=== PATIENT | male | born 1985 | race African-American/Black ===

== ENCOUNTER 2018-07-08 18:33 | Inpatient (IN) | payer MEDICAID, OTHER ==
--- NOTE | 2018-07-08 19:30 | ED ---
General Adult HPI - General Stated complaint: Suicidal, homicidal Time Seen by Provider: 07/08/18 19:12 Source: patient, family, RN notes reviewed, old records reviewed - History of Present Illness Initial comments: 33-year-old male presents for psychiatric evaluation. Patient is complaining of increasing suicidal and homicidal ideation. He has had several attempts at self-harm including some superficial cuts on his chest and thighs. He's had development of suicidal plans including any suicide with firearm or overdosing on pills. He is accompanied by [facility] employee who had evaluated him as an outpatient and requested that he be evaluated emergency department. Patient has no physical complaints. He is previous diagnosis of depression and schizophrenia, not currently on any medication. - Related Data Home Medications Medication Instructions Recorded Confirmed ARIPiprazole [Abilify] 10 mg PO DAILY 07/08/18 07/08/18 hydrOXYzine PAMOATE [Vistaril] 50 mg PO TID 07/08/18 07/08/18 traZODone HCL 300 mg PO HS 07/08/18 07/08/18 Allergies Allergy/AdvReac Type Severity Reaction Status Date / Time No Known Allergies Allergy Verified 07/08/18 19:35 Review of Systems ROS Statement: Those systems with pertinent positive or pertinent negative responses have been documented in the HPI. ROS Other: All systems not noted in ROS Statement are negative. General Exam General appearance: alert, in no apparent distress Head exam: Present: atraumatic, normocephalic Eye exam: Present: normal appearance, PERRL ENT exam: Present: normal exam Neck exam: Present: normal inspection. Absent: tenderness, meningismus Respiratory exam: Present: normal lung sounds bilaterally. Absent: respiratory distress Cardiovascular Exam: Present: regular rate, normal rhythm GI/Abdominal exam: Present: soft. Absent: distended, tenderness Extremities exam: Present: normal inspection Neurological exam: Present: alert, oriented X3 Psychiatric exam: Present: depressed, flat affect, homicidal ideation, suicidal ideation Skin exam: Present: warm, dry, abrasion (Superficial abrasion right medial thigh, left upper chest wall no repairable laceration) Course Vital Signs 07/08/18 19:00 Temperature 98.2 F Pulse Rate 88 Respiratory 20 Rate Blood Pressure 132/88 O2 Sat by Pulse 99 Oximetry Medical Decision Making - Medical Decision Making 33-year-old male presenting for psychiatric evaluation. Patient medically cleared by myself. He is evaluated by EPS, will be admitted for further psychiatric evaluation and treatment. Disposition Clinical Impression: Depression, Suicidal ideation Disposition: ADMITTED IP TO THIS HOSP Condition: Stable Is patient prescribed a controlled substance at d/c from ED?: No Referrals: None,Stated [Primary Care Provider] - 1-2 days Decision to Admit Reason: Admit from EC Decision Date: 07/08/18 Decision Time: 20:31
[2018-07-08] MEDS ORDERED: MAGNESIUM HYDROXIDE 2,400 MG/10 ML CUP PO PRN (20:59)
[2018-07-08] MEDS ORDERED: ZIPRASIDONE 20 MG VIAL IM PRN (20:59)
[2018-07-08] MEDS ORDERED: MAG HYDROX/AL HYDROX/SIMETH 30 ML CUP PO PRN (20:59)
[2018-07-08] MEDS ORDERED: ACETAMINOPHEN TAB 325 MG TAB PO PRN (20:59)
[2018-07-08] MEDS ORDERED: hydrOXYzine PAMOATE 25 MG CAP PO PRN (21:03)
--- NOTE | 2018-07-09 00:49 | P.PN ---
Progress Note - Text Progress Note Date: 07/09/18 attempted to see patient at 1230 , patient was sleeping, will retry in AM
[2018-07-09 12:35] LABS: ALT 18 U/L (21-72); AST 27 U/L (17-59); Albumin 4.8 g/dL (3.5-5.0); Alkaline Phosphatase 61 U/L (38-126); Anion Gap 9 mmol/L; Blood Urea Nitrogen 11 mg/dL (9-20); Calcium 10.1 mg/dL (8.4-10.2); Carbon Dioxide 25 mmol/L (22-30); Chloride 105 mmol/L (98-107); Cholesterol 160 mg/dL (<200); Glucose 103 mg/dL (74-99); HDL Cholesterol 75 mg/dL (40-60); LDL Cholesterol,Calculated 75 mg/dL (0-99); Potassium 4.5 mmol/L (3.5-5.1); Sodium 139 mmol/L (137-145); Total Protein 8.2 g/dL (6.3-8.2); Triglycerides 51 mg/dL (<150)
[2018-07-09 13:23] LABS: Basophils % (A) 1 %; Eosinophils # (A) 0.1 k/uL (0-0.7); Eosinophils % (A) 3 %; HCT 46.9 % (39.0-53.0); HGB 15.5 gm/dL (13.0-17.5); Lymphocytes # (A) 1.1 k/uL (1.0-4.8); Lymphocytes % (A) 34 %; MCH 31.5 pg (25.0-35.0); MCV 95.5 fL (80.0-100.0); Mean Platelet Volume 7.8; Monocytes # (A) 0.2 k/uL (0-1.0); Monocytes % (A) 5 %; Neutrophils # (A) 1.7 k/uL (1.3-7.7); Neutrophils % (A) 54 %; Platelet Count 179 k/uL (150-450); RBC 4.91 m/uL (4.30-5.90); RDW 14.2 % (11.5-15.5); WBC 3.2 k/uL (3.8-10.6)
--- NOTE | 2018-07-09 14:22 | P.HP ---
Psychiatric H&P - . H&P Date: 07/09/18 History & Physical: Allergies Allergy/AdvReac Type Severity Reaction Status Date / Time No Known Allergies Allergy Verified 07/08/18 19:35 Vital Signs Temp 98 F 07/09/18 06:08 Pulse 68 07/09/18 06:08 Resp 18 07/09/18 06:08 BP 113/67 07/09/18 06:08 Pulse Ox 96 07/09/18 06:08 Intake & Output 07/08/18 07/09/18 07/09/18 18:59 06:59 18:59 Weight 97.551 kg Assessment and Plan (1) Schizoaffective disorder Narrative/Plan: 33-year-old male presents for psychiatric evaluation. Patient is complaining of increasing suicidal and homicidal ideation. He has had several attempts at self-harm including some superficial cuts on his chest and thighs. He's had development of suicidal plans including any suicide with firearm or overdosing on pills. He is accompanied by community mental health employee who had evaluated him as an outpatient and requested that he be evaluated emergency department. Patient has no physical complaints. He is previous diagnosis of depression and schizophrenia, not currently on any medication. - Related Data Home Medications Medication Instructions Recorded Confirmed ARIPiprazole [Abilify] 10 mg PO DAILY 07/08/18 07/08/18 hydrOXYzine PAMOATE [Vistaril] 50 mg PO TID 07/08/18 07/08/18 traZODone HCL 300 mg PO HS 07/08/18 07/08/18 Allergies Allergy/AdvReac Type Severity Reaction Status Date / Time No Known Allergies Allergy Verified 07/08/18 19:35 Musculoskeletal Examination - Abnormal/Involuntary Movements: [none Strength: [greater than antigravity (greater than/equal to 3/5) in all extremities] Muscle Tone: [no impairment Gait: [grossly normal Station: [grossly normal Mental Status Examination - General Appearance: [ casual, bizarre, appears stated age, appears older than stated age, appears younger than stated age, other] Speech/Language: [spontaneous, hesitant, halting, monotone Attitude/Behavior: [cooperative, guarded, irritable, withdrawn, indifferent, other] Mood: [ depressed, anxious, elated, irritable, angry, fearful, hopelessness, other] Affect: [ flat, incongruent, labile, blunted constricted] Orientation: [time, person, place situation] Thought Content: [delusions Risk Factors: [Admits to both suicidal (ideations, plan), and/or Homicidal (ideations, plan), other] Perception: [wnl, hallucinations (auditory, visual, tactile), other] Thought Processes: [goal-oriented, concrete, circumstantial, tangential, other] Concentration/Attention Span: [ impaired] [Per observation and interview with the patient] Recent Memory: [wnl, 3 out of 3 in 3 minutes] Remote Memory: [wnl, [past events, as related history] Intelligence: [below average [based on history, based on vocabulary, syntax, grammar, and content] Judgement: [Fair] [per patient's behavior/history of present illness] Insight: Fair [understanding severity of illness/history of present illness] Admitting Diagnosis: [Bipolar affective disorder acute psychosis] Patient Strengths - Steady employment/financial stability: [x] Housing stability: [x] Able to vocalize needs: [x] Patient Limitations: [medication intellectual impairment, complicated medical illness, legal issues, lack of social supports] Initial Plan of Care: [He was admitted on a formal voluntary for auditory figueroa lucinations and racing thoughts to [address] [place] [address] for [place]. He'll be evaluated by medicine, psychiatry, nursing staff, social work contact. Therapy to be integrated in a bell milieu therapeutic environment and development of a biopsychosocial evaluation whereby disposition discharge will be reduced. Since he has auditory hallucinations and rapid thought he'll be started on Abilify 2 mg by mouth daily at bedtime, Depakote 250 mg extended release at bedtime, trazodone for his insomnia and Vistaril for his anxiety.] Estimated Length of Stay: [7 days] Initial Discharge Plan: [[place], [facility] Prognosis: [Fair] Justification for Inpatient Hospitalization - [Hallucinations, delusions, agitation, anxiety, depression resulting in significant loss of functioning.] [Dangerous to self, others, or property with need for controlled environment.] [Emotional or behavioral conditions and complications requiring 24 hour medical and nursing care.] [Need for special drug therapy, or other therapeutic program requiring continuous hospitalization.] [Failure of social or occupational functioning.] [Inability to meet basic life and health needs.] Current Visit: Yes Status: Acute Priority: High Code(s): F25.9 - SCHIZOAFFECTIVE DISORDER, UNSPECIFIED SNOMED Code(s): 47615392 Time with Patient: Greater than 30
[2018-07-09 18:25] LABS: Hemoglobin A1C 4.8 % (4.0-6.0)
[2018-07-09] MEDS ORDERED: ARIPiprazole 2 MG TAB PO SCH (21:00)
[2018-07-09] MEDS ORDERED: DIVALPROEX ER 250 MG TAB.ER.24H PO SCH (21:00)
--- NOTE | 2018-07-09 21:00 | P.MDCNMH ---
History of Present Illness H&P Date: 07/09/18 Chief Complaint: Suicidal ideation 33-year-old male with history of schizophrenia and bipolar disorder. Patient was brought into the hospital for psychiatric evaluation due to suicidal and homicidal ideation. Patient refuses to mention was his homicidal ideation is to work. He reports that he was thinking of self harming using a firearm or overdosing. Patient complains of auditory hallucinations which telling him to harm himself. He admits to noncompliance with medications since April 2018. Patient also admits to tobacco smoking and marijuana. He otherwise denies any physical complaints at this time denies any fevers or chills cough chest pain or shortness of breath. Denies any abdominal pain nausea vomiting or changes in his bowel or urinary habits. Review of Systems Pertinent positives as noted in HPI. All other systems were reviewed and are negative Past Medical History Past Medical History: No Reported History History of Any Multi-Drug Resistant Organisms: None Reported Past Surgical History: Orthopedic Surgery Additional Past Surgical History / Comment(s): eye surgery Past Psychological History: Anxiety, Bipolar, Depression Smoking Status: Current every day smoker Past Alcohol Use History: Occasional Past Drug Use History: Marijuana Medications and Allergies Home Medications Medication Instructions Recorded Confirmed Type ARIPiprazole [Abilify] 10 mg PO DAILY 07/08/18 07/08/18 History hydrOXYzine PAMOATE [Vistaril] 50 mg PO TID 07/08/18 07/08/18 History traZODone HCL 300 mg PO HS 07/08/18 07/08/18 History Allergies Allergy/AdvReac Type Severity Reaction Status Date / Time No Known Allergies Allergy Verified 07/08/18 19:35 Physical Exam Vitals: Vital Signs Temp Pulse Pulse Resp BP BP Pulse Ox 07/09/18 06:08 98 F 68 18 113/67 96 07/08/18 22:00 98.1 F 61 16 118/84 97 07/08/18 20:54 98.3 F 65 18 132/99 99 07/08/18 19:00 98.2 F 88 20 132/88 99 Intake and Output 07/08/18 07/09/18 07/09/18 22:59 06:59 14:59 Other: Weight 97.551 kg Constitutional: No acute distress, conversant, pleasant Eyes: Anicteric sclerae, moist conjunctiva, no lid-lag Pupils equal round reactive to light ENMT: NC/AT Oropharynx clear, no erythema, exudates Neck: Supple, FROM, no masses, or JVD No carotid bruits No thyromegaly Lungs: Clear to auscultation Clear to percussion Normal respiratory effort, no accessory muscle use Cardiovascular: Heart regular in rate and rhythm, No murmurs, gallops, or rubs No peripheral edema Abdominal: Soft Nontender, no guarding, rebound or rigidity Abdomen moving with respiration Normoactive bowel sounds No hepatomegaly, No splenomegaly No palpable mass No abdominal wall hernia noted Skin: Normal temperature, tone, texture, turgor No induration No subcutaneous nodules No rash, lesions No ulcers Extremities: No digital cyanosis No clubbing Pedal pulses intact and symmetrical Radial pulses intact and symmetrical No calf tenderness Psychiatric: Alert and oriented to person, place and time Flat affect Poor judgment Neuro Muscles Strength 5/5 in all 4 extremities Sensation to light touch grossly present throughout Cranial nerves II-XII grossly intact No focal sensory deficits Lymphatics: no palpable cervical or supraclavicular , or inguinal lymph nodes Cranial Nerve Examination - Cranial Nerves Cranial Nerve II- Optic: Intact Cranial Nerve III- Oculomotor: Intact Cranial Nerve IV- Trochlear: Intact Cranial Nerve V- Trigeminal: Intact Cranial Nerve - Abducens: Intact Cranial Nerve VII- Facial: Intact Cranial Nerve VIII- Auditory: Intact Cranial Nerve IX- Glossopharyngeal: Intact Cranial Nerve X- Vagus: Intact Cranial Nerve XI- Accessory: Intact Cranial Nerve XII- Hypoglossal: Intact Results CBC & Chem 7: 07/09/18 11:56 07/09/18 11:56 Assessment and Plan Assessment: 33-year-old male with history of schizophrenia bipolar disorder depression, presented to the hospital due to suicidal ideation and homicidal ideation he refuses to to mention the person that he has homicidal ideation toward otherwise he denies any physical complaints Plan: Schizophrenia, with acute psychosis patient complains of auditory hallucinations. Depression Bipolar disorder Suicidal and homicidal ideation Management per psych Patient is not compliant with home meds Tobacco smoking Polysubstance abuse Low risk for DVT patient is ambulatory Thank you for allowing us to participate in the care of this patient. We will follow peripherally. Do not hesitate to contact us with questions. Someone can be reached from the [facility] hospitalist group at all hours of the day at [phone].
[2018-07-09] MEDS: traZODone HCL 50 MG TAB PO SCH (21:28)
[2018-07-09 22:26] VITALS: BMI 26.9
--- NOTE | 2018-07-10 13:05 | P.PN ---
Subjective Progress Note Date: 07/10/18 Principal diagnosis: Schizoaffective bipolar type 07/10/2018: Chart reviewed, discussed in team this morning discussed with nursing staff and social work. Patient interviewed and quite different presentation today. Less paranoid and less delusional and not suicidal not homicidal. He is somewhat bashful and did not want to talk to Huber from [facility] this morning. He is sleeping fine he has decrease in auditory hallucinations but remains paranoid. Objective - Vital Signs Vital signs: Vital Signs Temp 98 F 07/09/18 06:08 Pulse 68 07/09/18 06:08 Resp 18 07/09/18 06:08 BP 113/67 07/09/18 06:08 Pulse Ox 96 07/09/18 06:08 - Labs CBC & Chem 7: 07/09/18 11:56 07/09/18 11:56 Labs: Abnormal Lab Results - Last 24 Hours (Table) 07/09/18 07/09/18 Range/Units 11:56 11:56 WBC 3.2 L (3.8-10.6) k/uL TSH 0.378 L (0.465-4.680) mIU/L Assessment and Plan (1) Schizoaffective disorder Narrative/Plan: 33-year-old male presents for psychiatric evaluation. Patient is complaining of increasing suicidal and homicidal ideation. He has had several attempts at self-harm including some superficial cuts on his chest and thighs. He's had development of suicidal plans including any suicide with firearm or overdosing on pills. He is accompanied by [facility] employee who had evaluated him as an outpatient and requested that he be evaluated emergency department. Patient has no physical complaints. He is previous diagnosis of depression and schizophrenia, not currently on any medication. - Related Data Home Medications Medication Instructions Recorded Confirmed ARIPiprazole [Abilify] 10 mg PO DAILY 07/08/18 07/08/18 hydrOXYzine PAMOATE [Vistaril] 50 mg PO TID 07/08/18 07/08/18 traZODone HCL 300 mg PO HS 07/08/18 07/08/18 Allergies Allergy/AdvReac Type Severity Reaction Status Date / Time No Known Allergies Allergy Verified 07/08/18 19:35 Musculoskeletal Examination - Abnormal/Involuntary Movements: [none Strength: [greater than antigravity (greater than/equal to 3/5) in all extrem ities] Muscle Tone: [no impairment Gait: [grossly normal Station: [grossly normal Mental Status Examination - General Appearance: [ casual, bizarre, appears stated age, appears older than stated age, appears younger than stated age, other] Speech/Language: [spontaneous, hesitant, halting, monotone Attitude/Behavior: [cooperative, guarded, irritable, withdrawn, indifferent, other] Mood: [ depressed, anxious, elated, irritable, angry, fearful, hopelessness, other] Affect: [ flat, incongruent, labile, blunted constricted] Orientation: [time, person, place situation] Thought Content: [delusions Risk Factors: [Admits to both suicidal (ideations, plan), and/or Homicidal (ideations, plan), other] Perception: [wnl, hallucinations (auditory, visual, tactile), other] Thought Processes: [goal-oriented, concrete, circumstantial, tangential, other] Concentration/Attention Span: [ impaired] [Per observation and interview with the patient] Recent Memory: [wnl, 3 out of 3 in 3 minutes] Remote Memory: [wnl, [past events, as related history] Intelligence: [below average [based on history, based on vocabulary, syntax, grammar, and content] Judgement: [Fair] [per patient's behavior/history of present illness] Insight: Fair [understanding severity of illness/history of present illness] Admitting Diagnosis: [Bipolar affective disorder acute psychosis] Patient Strengths - Steady employment/financial stability: [x] Housing stability: [x] Able to vocalize needs: [x] Patient Limitations: [medication intellectual impairment, complicated medical illness, legal issues, lack of social supports] Initial Plan of Care: [He was admitted on a formal voluntary for auditory hallucinations and racing thoughts to [address] [place] [address] for [place]. He'll be evaluated by medicine, psychiatry, nursing staff, social work contact. Therapy to be integrated in a bell milieu therapeutic environment and development of a biopsychosocial evaluation whereby disposition discharge will be reduced. Since he has auditory hallucinations and rapid thought he'll be started on Abilify 2 mg by mouth daily at bedtime, Depakote 250 mg extended release at bedtime, trazodone for his insomnia and Vistaril for his anxiety.] 07/10/2018: Remains on 15 minute checks twice on the psychiatric unit [address] He has decreased of auditory hallucinations but remains fearful and paranoid. These discussed the fact that he needs to take his medications when he leaves the hospital and he works out hours at his job and states that he needs to solve the problem in getting to the doctor. Creases Abilify to 5 mg by mouth daily at bedtime and increase his Depakote to 500 mg extended release at bedtime. Remains on trazodone for his insomnia and depression. He has Vistaril if he needs it for his anxiety. Current Visit: Yes Status: Acute Priority: Medium Code(s): F25.9 - SCHIZOAFFECTIVE DISORDER, UNSPECIFIED SNOMED Code(s): 64354511 Time with Patient: Less than 30
[2018-07-10] MEDS ORDERED: DIVALPROEX ER 500 MG TAB.ER.24H PO SCH (21:00)
[2018-07-10] MEDS ORDERED: ARIPiprazole 5 MG TAB PO SCH (21:00)
[2018-07-10] MEDS: traZODone HCL 50 MG TAB PO SCH (21:35)
[2018-07-11 06:41] VITALS: BP 120/67; PULSE 54; RESP 16; TEMP 97.5
--- NOTE | 2018-07-11 11:15 | P.DS ---
Providers Date of admission: 07/08/18 20:44 Expected date of discharge: 07/11/18 Attending physician: Wilfredo Bender DO Consults: 07/08/18 20:59 Consult Physician Routine Consulting Provider: Keshia Russo Consult Reason/Comments: H&P and medical Do you want consulting provider notified?: Yes Primary care physician: Stated None - Discharge Diagnosis(es) (1) Schizoaffective disorder Allergies Allergy/AdvReac Type Severity Reaction Status Date / Time No Known Allergies Allergy Verified 07/08/18 19:35 Vital Signs Temp 98 F 07/09/18 06:08 Pulse 68 07/09/18 06:08 Resp 18 07/09/18 06:08 BP 113/67 07/09/18 06:08 Pulse Ox 96 07/09/18 06:08 Intake & Output 07/08/18 07/09/18 07/09/18 18:59 06:59 18:59 Weight 97.551 kg Assessment and Plan (1) Schizoaffective disorder Narrative/Plan: 33-year-old male presents for psychiatric evaluation. Patient is complaining of increasing suicidal and homicidal ideation. He has had several attempts at self-harm including some superficial cuts on his chest and thighs. He's had development of suicidal plans including any suicide with firearm or overdosing on pills. He is accompanied by community mental health employee who had evaluated him as an outpatient and requested that he be evaluated emergency department. Patient has no physical complaints. He is previous diagnosis of depression and schizophrenia, not currently on any medication. - Related Data Home Medications Medication Instructions Recorded Confirmed ARIPiprazole [Abilify] 10 mg PO DAILY 07/08/18 07/08/18 hydrOXYzine PAMOATE [Vistaril] 50 mg PO TID 07/08/18 07/08/18 traZODone HCL 300 mg PO HS 07/08/18 07/08/18 Allergies Allergy/AdvReac Type Severity Reaction Status Date / Time No Known Allergies Allergy Verified 07/08/18 19:35 Musculoskeletal Examination - Abnormal/Involuntary Movements: [none Strength: [greater than antigravity (greater than/equal to 3/5) in all extremities] Muscle Tone: [no impairment Gait: [grossly normal Station: [grossly normal Mental Status Examination - General Appearance: [ casual, bizarre, appears stated age, appears older than stated age, appears younger than stated age, other] Speech/Language: [spontaneous, hesitant, halting, monotone Attitude/Behavior: [cooperative, guarded, irritable, withdrawn, indifferent, other] Mood: [ depressed, anxious, elated, irritable, angry, fearful, hopelessness, other] Affect: [ flat, incongruent, labile, blunted constricted] Orientation: [time, person, place situation] Thought Content: [delusions Risk Factors: [Admits to both suicidal (ideations, plan), and/or Homicidal (ideations, plan), other] Perception: [wnl, hallucinations (auditory, visual, tactile), other] Thought Processes: [goal-oriented, concrete, circumstantial, tangential, other] Concentration/Attention Span: [ impaired] [Per observation and interview with the patient] Recent Memory: [wnl, 3 out of 3 in 3 minutes] Remote Memory: [wnl, [past events, as related history] Intelligence: [below average [based on history, based on vocabulary, syntax, grammar, and content] Judgement: [Fair] [per patient's behavior/history of present illness] Insight: Fair [understanding severity of illness/history of present illness] Admitting Diagnosis: [Bipolar affective disorder acute psychosis] Current Visit: Yes Status: Acute Priority: Low Hospital Course: Plan of Care: [He was admitted on a formal voluntary for auditory hallucinations and racing thoughts to [address] [place] [address]. He'll be evaluated by medicine, psychiatry, nursing staff, social work contact. Therapy to be integrated in a bell milieu therapeutic environment and development of a biopsychosocial evaluation whereby disposition discharge will be reduced. Since he has auditory hallucinations and rapid thought he'll be started on Abilify 2 mg by mouth daily at bedtime, Depakote 250 mg extended release at bedtime, trazodone for his insomnia and Vistaril for his anxiety.] 07/10/2018: Remains on 15 minute checks twice on the psychiatric unit [address] [place] [address]. He has decreased of auditory hallucinations but remains fearful and paranoid. These discussed the fact that he needs to take his medications when he leaves the hospital and he works out hours at his job and states that he needs to solve the problem in getting to the doctor. Creases Abilify to 5 mg by mouth daily at bedtime and increase his Depakote to 500 mg extended release at bedtime. Remains on trazodone for his insomnia and depression. He has Vistaril if he needs it for his anxiety. Mental status examination time of discharge: 07/11/2018 11:14 AM The patient presents alert, pleasant, and cooperative. There calmly seated without any agitated behavior. [He] reports that [his] mood is good. Affect is congruent and euthymic. [He] deny having any suicidal or homicidal ideation intent or plan. [He] denies any auditory or visual hallucinations. There is no evidence of any delusional thought content. [His] thought process is linear an d goal-directed. [His] speech is fluent and nonpressured. [His] memory and concentration is grossly intact for the purposes of this session. His medications are being filled that [facility] Patient Condition at Discharge: Stable Plan - Discharge Summary Discharge Rx Participant: Yes New Discharge Prescriptions: New Divalproex ER [Depakote ER] 500 mg PO 2100 30 Days #30 tab.er.24h traZODone HCL [Desyrel] 150 mg PO HS 30 Days #90 tab hydrOXYzine PAMOATE [Vistaril] 25 mg PO TID PRN 30 Days #30 cap PRN Reason: Agitation Or Acute Anxiety Continue ARIPiprazole [Abilify] 10 mg PO DAILY 30 Days #30 tab Discontinued traZODone HCL 300 mg PO HS hydrOXYzine PAMOATE [Vistaril] 50 mg PO TID Discharge Medication List ARIPiprazole [Abilify] 10 mg PO DAILY 30 Days #30 tab 07/11/18 [Rx] Divalproex ER [Depakote ER] 500 mg PO 2100 30 Days #30 tab.er.24h 07/11/18 [Rx] hydrOXYzine PAMOATE [Vistaril] 25 mg PO TID PRN 30 Days #30 cap 07/11/18 [Rx] traZODone HCL [Desyrel] 150 mg PO HS 30 Days #90 tab 07/11/18 [Rx] Follow up Appointment(s)/Referral(s): None,Stated [Primary Care Provider] - 1-2 days Activity/Diet/Wound Care/Special Instructions: Activity and diet as tolerated. No guns or weapons in the home. Refrain from alcohol and drugs not prescribed by your physician. Take all medications as prescribed and attend all follow up appointments as scheduled. If in crisis, please call or go the nearest . If in need of medication refills, please to your primary care physician or go to your out patient psychiatric provider. Discharge Disposition: HOME SELF-CARE
== END 2018-07-11 13:49 | disposition home or self-care (01) | DRG 885 ==
LOC: EC 18:33 → 3MHU 20:44
PROVIDERS: ADMIT Psychiatry & Neurology Psychiatry; ATTEND Psychiatry & Neurology Psychiatry
DX: F25.9 Schizoaffective disorder, unspecified (principal); R45.851 Suicidal ideations; F23 Brief psychotic disorder; F41.9 Anxiety disorder, unspecified; G47.00 Insomnia, unspecified; R45.850 Homicidal ideations; Z79.899 Other long term (current) drug therapy
CPT/HCPCS: 80053; 80061; 82075; 83036; 84443; 85025; 99285

== ENCOUNTER 2023-12-25 21:09 | Emergency (ER) | payer OTHER ==
[2023-12-25 21:24] VITALS: RESP 18
--- NOTE | 2023-12-25 21:31 | ED ---
General Adult HPI - General Chief complaint: Skin/Abscess/Foreign Body Stated complaint: L hand infection Time Seen by Provider: 12/25/23 21:13 Source: patient, RN notes reviewed, old records reviewed Mode of arrival: ambulatory Limitations: no limitations - History of Present Illness Initial comments: 38-year-old male with pain and swelling to the distal phalanx third digit left hand. No fever. Patient is a nondiabetic. This began after clipping his fingernails. - Related Data Previous Rx's Medication Instructions Recorded ARIPiprazole [Abilify] 10 mg PO DAILY 30 Days #30 tab 07/11/18 Divalproex ER [Depakote ER] 500 mg PO 2100 30 Days #30 07/11/18 tab.er.24h hydrOXYzine pamoate [Vistaril] 25 mg PO TID PRN 30 Days #30 cap 07/11/18 traZODone HCL [Desyrel] 150 mg PO HS 30 Days #90 tab 07/11/18 Sulfamethox-Tmp 800-160Mg [Bactrim 1 tab PO Q12HR 7 Days #14 tab 12/25/23 DS 800-160 mg] Allergies Allergy/AdvReac Type Severity Reaction Status Date / Time No Known Allergies Allergy Verified 12/25/23 21:24 Review of Systems ROS Statement: Those systems with pertinent positive or pertinent negative responses have been documented in the HPI. ROS Other: All systems not noted in ROS Statement are negative. Past Medical History Past Medical History: No Reported History History of Any Multi-Drug Resistant Organisms: None Reported Past Surgical History: Orthopedic Surgery Additional Past Surgical History / Comment(s): eye surgery, surgey on achilles Past Anesthesia/Blood Transfusion Reactions: No Reported Reaction Past Psychological History: Anxiety, Bipolar, Depression Smoking Status: Current every day smoker Past Alcohol Use History: Occasional Past Drug Use History: Marijuana, Opiates General Exam Limitations: no limitations General appearance: alert, in no apparent distress Head exam: Present: atraumatic, normocephalic Eye exam: Present: normal appearance, PERRL ENT exam: Present: normal exam Neck exam: Present: normal inspection. Absent: tenderness, meningismus Respiratory exam: Present: normal lung sounds bilaterally. Absent: respiratory distress, wheezes Cardiovascular Exam: Present: regular rate, normal rhythm Extremities exam: Present: other (Paronychia third digit left hand) Course Vital Signs 12/25/23 21:20 Temperature 98.2 F Pulse Rate 92 Respiratory 18 Rate Blood Pressure 151/104 O2 Sat by Pulse 99 Oximetry Procedures - Incision & Drainage Consent Obtained: verbal consent Indication: Paronychia Site: hand Anesthetic Used: lidocaine 1% Amount (mLs): 5 I&D Cleaning Method: Chloroprep Sterile Field Used?: Yes Scalpel Used: #11 Patient Tolerated Procedure: well - Nerve Block Consent Obtained: verbal consent Local Anesthetic Used: Lidocaine 1% Amount of anesthesia used: 5 Side: left Nerve Blocks: digital Complications: none Patient Tolerated Procedure: well Medical Decision Making - Medical Decision Making Was pt. sent in by a medical professional or institution (INOCENTE Brown, AD CLERK, urgent c are, hospital, or half-way...) When possible be specific @ -No Did you speak to anyone other than the patient for history (EMS, parent, family, police, friend...)? What history was obtained from this source @ -No Did you review nursing and triage notes (agree or disagree)? Why? @ -I reviewed and agree with nursing and triage notes Were old charts reviewed (outside hosp., previous admission, EMS record, old EKG, old radiological studies, urgent care reports/EKG's, half-way records)? Report findings @ -No old charts were reviewed Differential Diagnosis:felon, paronychia, cellulitis, tenosynovitis EKG interpreted by me (3pts min.). @ -As above X-rays interpreted by me (1pt min.). @ -None done CT interpreted by me (1pt min.). @ -None done U/S interpreted by me (1pt. min.). @ -None done What testing was considered but not performed or refused? (CT, X-rays, U/S, labs)? Why? @ -None What meds were considered but not given or refused? Why? @ -None Did you discuss the management of the patient with other professionals (professionals i.e. INOCENTE Brown, AD CLERK, lab, RT, psych nurse, social media strategist, criminal lawyer, teacher, helicopter officer, residential case manager)? Give summary @ -No Was smoking cessation discussed for >3mins.? @ -No Was critical care preformed (if so, how long)? @ -No Were there social determinants of health that impacted care today? How? (Homelessness, low income, unemployed, alcoholism, drug addiction, transportation, low edu. Level, literacy, decrease access to med. care, senior living, rehab)? @ -No Was there de-escalation of care discussed even if they declined (Discuss DNR or withdrawal of care, Hospice)? DNR status @ -No What co-morbidities impacted this encounter? (DM, HTN, Smoking, COPD, CAD, Cancer, CVA, ARF, Chemo, Hep., AIDS, mental health diagnosis, sleep apnea, morbid obesity)? @ -None Was patient admitted / discharged? Hospital course, mention meds given and route, prescriptions, significant lab abnormalities, going to OR and other pertinent info. @38-year-old male with paronychia to the left third digit. Patient agrees to digital block and incision and drainage. Both procedures are performed without complication. Significant amount of purulent material and blood is removed from the paronychia. Patient is covered with Bactrim and instructed to follow-up with primary care provider Undiagnosed new problem with uncertain prognosis? @ -No Drug Therapy requiring intensive monitoring for toxicity (Heparin, Nitro, Insulin, Cardizem)? @ -No Were any procedures done? @ -Yes, digital block and incision and drainage Diagnosis/symptom? @ -[Paronychia Acute, or Chronic, or Acute on Chronic? @ -Acute Uncomplicated (without systemic symptoms) or Complicated (systemic symptoms)? @ -Default Side effects of treatment? @ -No Exacerbation, Progression, or Severe Exacerbation? @ -No Poses a threat to life or bodily function? How? (Chest pain, [place], [place], pneumonia, PE, COPD, DKA, ARF, appy, cholecystitis, CVA, Diverticulitis, Homicidal, Suicidal, threat to staff... and all critical care pts) @ -No Disposition Clinical Impression: Paronychia Disposition: HOME SELF-CARE Condition: Fair Instructions (If sedation given, give patient instructions): Paronychia (ED) Prescriptions: Sulfamethox-Tmp 800-160Mg [Bactrim DS 800-160 mg] 1 tab PO Q12HR 7 Days #14 tab Is patient prescribed a controlled substance at d/c from ED?: No Referrals: None,Stated [Primary Care Provider] - 1-2 days Time of Disposition: 22:00
[2023-12-25] MEDS: SULFAMETHOX-TMP 800-160MG 1 EACH TAB PO STA (21:54)
[2023-12-25] MEDS: LIDOCAINE 1% INJ 10MG/ML (20 ML MDV) SQ ONE (21:54)
[2023-12-25 21:59] VITALS: BP 152/117; PULSE 89; TEMP 97.8
== END 2023-12-25 22:11 | disposition home or self-care (01) ==
LOC: EC 21:09
DX: L03.012 Cellulitis of left finger (principal); F17.200 Nicotine dependence, unspecified, uncomplicated
CPT/HCPCS: 99283; 10060; J2003

== ENCOUNTER 2024-01-09 08:23 | Inpatient (IN) | payer MEDICARE, OTHER ==
--- NOTE | 2024-01-09 08:59 | ED ---
Dizziness HPI - General Chief Complaint: Dizziness Stated Complaint: dizziness Time Seen by Provider: 01/09/24 08:58 Source: patient, family (mother), RN notes reviewed Mode of arrival: ambulatory Limitations: no limitations - History of Present Illness Initial Comments: 38-year-old male presenting to the ER with a chief complaint of dizziness and a migraine. Patient states for the past 16 hours he has been feeling extremely dizzy. He does report his symptoms worsen with head movements and positional changes. He states his migraine is constant. Patient does report light sensitivity with migraine. He denies any weakness, slurred speech or facial droop. He denies any chest pain or shortness of breath. No known cardiac history. Patient does report recent cough and congestion but denies any known fevers, chills, abdominal pain, constipation/diarrhea, urinary complaints or peripheral edema. - Related Data Previous Rx's Medication Instructions Recorded ARIPiprazole [Abilify] 10 mg PO DAILY 30 Days #30 tab 07/11/18 Divalproex ER [Depakote ER] 500 mg PO 2100 30 Days #30 07/11/18 tab.er.24h hydrOXYzine pamoate [Vistaril] 25 mg PO TID PRN 30 Days #30 cap 07/11/18 traZODone HCL [Desyrel] 150 mg PO HS 30 Days #90 tab 07/11/18 Sulfamethox-Tmp 800-160Mg [Bactrim 1 tab PO Q12HR 7 Days #14 tab 12/25/23 DS 800-160 mg] Allergies Allergy/AdvReac Type Severity Reaction Status Date / Time No Known Allergies Allergy Verified 12/25/23 21:24 Review of Systems ROS Statement: Those systems with pertinent positive or pertinent negative responses have been documented in the HPI. ROS Other: All systems not noted in ROS Statement are negative. Past Medical History Past Medical History: No Reported History History of Any Multi-Drug Resistant Organisms: None Reported Past Surgical History: Orthopedic Surgery Additional Past Surgical History / Comment(s): eye surgery, surgey on achilles Past Anesthesia/Blood Transfusion Reactions: No Reported Reaction Past Psychological History: Anxiety, Bipolar, Depression, Schizophrenia Smoking Status: Current every day smoker Past Alcohol Use History: Occasional Past Drug Use History: Marijuana, Opiates General Exam Limitations: no limitations General appearance: alert, in no apparent distress Eye exam: Present: normal appearance, PERRL, EOMI. Absent: scleral icterus, conjunctival injection, periorbital swelling Pupils: Present: normal accommodation Respiratory exam: Present: normal lung sounds bilaterally. Absent: respiratory distress, wheezes, rales, rhonchi, stridor Cardiovascular Exam: Present: regular rate, normal rhythm, normal heart sounds. Absent: systolic murmur, diastolic murmur, rubs, gallop, clicks Neurological exam: Present: alert, oriented X3, CN II-XII intact Psychiatric exam: Present: normal affect, normal mood Skin exam: Present: warm, dry, intact, normal color. Absent: rash Course Vital Signs 01/09/24 01/09/24 01/09/24 08:25 08:51 09:37 Temperature 97.4 F L Pulse Rate 81 73 78 Respiratory 20 18 18 Rate Blood Pressure 151/104 153/114 155/92 O2 Sat by Pulse 99 99 99 Oximetry 01/09/24 01/09/24 01/09/24 10:02 11:07 12:17 Temperature Pulse Rate 75 75 Respiratory 18 18 Rate Blood Pressure 158/110 151/106 149/100 O2 Sat by Pulse 99 98 Oximetry - Reevaluation(s) Reevaluation #1: 01/09/24 10:13 Patient reevaluated. Patient pacing exam room with no signs of acute distress. Patient reporting continued of dizziness and headache. Patient updated on laboratory results 01/09/24 13:[address] Carlson, [facility], for admission. EKG Findings - EKG Comments: EKG Findings:: EKG taken at 8: 39 showing a sinus rhythm. No ST segment elevations or depressions. Inverted T waves in V4 and V5. pH. Ventricular rate 64, NH interval 136, QRS duration 96, QT/QTc 431/441. Medical Decision Making - Medical Decision Making Was pt. sent in by a medical professional or institution (, PA, WARRANTY CLERK, urgent care, hospital, or long term...) When possible be specific @ -No Did you speak to anyone other than the patient for history (EMS, parent, family, police, friend...)? What history was obtained from this source @ -Patient's mother, at bedside, aiding in HPI and past medical history. Did you review nursing and triage notes (agree or disagree)? Why? @ -I reviewed and agree with nursing and triage notes Were old charts reviewed (outside hosp., previous admission, EMS record, old EKG, old radiological studies, urgent care reports/EKG's, long term records)? Report findings @ -No old charts were reviewed Differential Diagnosis (chest pain, altered mental status, abdominal pain women, abdominal pain men, vaginal bleeding, weakness, fever, dyspnea, syncope, headache, dizziness, GI bleed, back pain, seizure, CVA, palpatations, mental health, musculoskeletal)? @ -Differential Dizziness:Benign paroxysmal positional Vertigo, Meniere's disease, otitis media, acoustic neuroma, vertebrobasilar insufficiency, cerebellar stroke, encephalitis, hypovolemic, arrhythmia, coronary artery syndrome, anemia, this is not meant to be an all-inclusive list EKG interpreted by me (3pts min.). @ -As above X-rays interpreted by me (1pt min.). @ -CXR interpreted me negative for acute cardiopulmonary process. CT interpreted by me (1pt min.). @ -CT brain negative for acute intracranial process. U/S interpreted by me (1pt. min.). @ -None done What testing was considered but not performed or refused? (CT, X-rays, U/S, labs)? Why? @ -Patient refused cepheid testing. What meds were considered but not given or refused? Why? @ -None Did you discuss the management of the patient with other professionals (professionals i.e. , PA, WARRANTY CLERK, lab, RT, psych nurse, social media job titles, appliquer zigzag, teacher, security control room officer, case manager specialist)? Give summary @ -Yes, case discussed with Dr. Carlson, [facility], for admission. Was smoking cessation discussed for >3mins.? @ -No Was critical care preformed (if so, how long)? @ -No Were there social determinants of health that impacted care today? How? (Homelessness, low income, unemployed, alcoholism, drug addiction, transport ation, low edu. Level, literacy, decrease access to med. care, intermediate, rehab)? @ -No Was there de-escalation of care discussed even if they declined (Discuss DNR or withdrawal of care, Hospice)? DNR status @ -No What co-morbidities impacted this encounter? (DM, HTN, Smoking, COPD, CAD, Cancer, CVA, ARF, Chemo, Hep., AIDS, mental health diagnosis, sleep apnea, morbid obesity)? @ -None Was patient admitted / discharged? Hospital course, mention meds given and route, prescriptions, significant lab abnormalities, going to OR and other pertinent info. @ -Admitted. 38-year-old male presented to the ER with a chief complaint of dizziness and headache. History and physical exam completed. Patient r is hypertensive upon arrival with a blood pressure of 151/104. Vitals otherwise stable. Patient in no signs of acute distress nontoxic-appearing. Laboratory studies obtained unremarkable. Troponin x 2 undetectable. EKG showing NSR with LVH. Chest x-ray negative. CT brain negative. Patient given p.o. Tylenol for headache in the ER. Patient remained hypertensive at 150/108 after 20 mg IV hydralazine and p.o. 0.1 clonidine. Admission considered at that time for blood pressure control. This was discussed with Dr. Robyn SAUER. Cardiology and neurology on consult. Patient agreeable for admission. Undiagnosed new problem with uncertain prognosis? @ -No Drug Therapy requiring intensive monitoring for toxicity (Heparin, Nitro, Insulin, Cardizem)? @ -No Were any procedures done? @ -No Diagnosis/symptom? @ -Hypertensive urgency/headache/dizziness Acute, or Chronic, or Acute on Chronic? @ -Acute Uncomplicated (without systemic symptoms) or Complicated (systemic symptoms)? @ -Complicated Side effects of treatment? @ -No Exacerbation, Progression, or Severe Exacerbation? @ -No Poses a threat to life or bodily function? How? (Chest pain, [place], [place], pneumonia, PE, COPD, DKA, ARF, appy, cholecystitis, CVA, Diverticulitis, Homicidal, Suicidal, threat to staff... and all critical care pts) @ -Yes - Lab Data Result diagrams: 01/09/24 09:00 01/09/24 09:00 Lab Results 01/09/24 01/09/24 01/09/24 Range/Units 09:00 09:00 09:00 WBC 3.9 (3.8-10.6) k/uL RBC 4.44 (4.30-5.90) m/uL Hgb 14.7 (13.0-17.5) gm/dL Hct 45.2 (39.0-53.0) % MCV 101.7 H (80.0-100.0) fL MCH 33.1 (25.0-35.0) pg MCHC 32.5 (31.0-37.0) g/dL RDW 13.0 (11.5-15.5) % Plt Count 194 (150-450) k/uL MPV 7.5 Neutrophils % 61 % Lymphocytes % 29 % Monocytes % 6 % Eosinophils % 2 % Basophils % 1 % Neutrophils # 2.4 (1.3-7.7) k/uL Lymphocytes # 1.1 (1.0-4.8) k/uL Monocytes # 0.2 (0-1.0) k/uL Eosinophils # 0.1 (0-0.7) k/uL Basophils # 0.0 (0-0.2) k/uL Macrocytosis Slight PT 10.7 (10.0-12.5) sec INR 1.0 (<1.2) APTT 25.0 (22.0-30.0) sec Sodium 136 L (137-145) mmol/L Potassium 4.5 (3.5-5.1) mmol/L Chloride 104 (98-107) mmol/L Carbon Dioxide 24 (22-30) mmol/L Anion Gap 8 mmol/L BUN 16 (9-20) mg/dL Creatinine 1.00 (0.66-1.25) mg/dL Est GFR (CKD-EPI)AfAm >90 (>60 ml/min/1.73 sqM) Est GFR (CKD-EPI)NonAf >90 (>60 ml/min/1.73 sqM) Glucose 96 (74-99) mg/dL Calcium 9.6 (8.4-10.2) mg/dL Magnesium 2.2 (1.6-2.3) mg/dL Total Bilirubin 1.3 (0.2-1.3) mg/dL AST 44 (17-59) U/L ALT 28 (4-49) U/L Alkaline Phosphatase 41 (38-126) U/L Troponin I (0.000-0.034) ng/mL Total Protein 8.3 H (6.3-8.2) g/dL Albumin 4.9 (3.5-5.0) g/dL Urine Color Urine Appearance (Clear) Urine pH (5.0-8.0) Ur Specific [place] (1.001-1.035) Urine Protein (Negative) Urine Glucose (UA) (Negative) Urine Ketones (Negative) Urine Blood (Negative) Urine Nitrite (Negative) Urine Bilirubin (Negative) Urine Urobilinogen (<2.0) mg/dL Ur Leukocyte Esterase (Negative) Urine RBC (0-5) /hpf Urine WBC (0-5) /hpf Ur Squamous Epith Cells (0-4) /hpf Urine Mucus (None) /hpf 01/09/24 01/09/24 01/09/24 Range/Units 09:00 11:01 12:17 WBC (3.8-10.6) k/uL RBC (4.30-5.90) m/uL Hgb (13.0-17.5) gm/dL Hct (39.0-53.0) % MCV (80.0-100.0) fL MCH (25.0-35.0) pg MCHC (31.0-37.0) g/dL RDW (11.5-15.5) % Plt Count (150-450) k/uL MPV Neutrophils % % Lymphocytes % % Monocytes % % Eosinophils % % Basophils % % Neutrophils # (1.3-7.7) k/uL Lymphocytes # (1.0-4.8) k/uL Monocytes # (0-1.0) k/uL Eosinophils # (0-0.7) k/uL Basophils # (0-0.2) k/uL Macrocytosis PT (10.0-12.5) sec INR (<1.2) APTT (22.0-30.0) sec Sodium (137-145) mmol/L Potassium (3.5-5.1) mmol/L Chloride (98-107) mmol/L Carbon Dioxide (22-30) mmol/L Anion Gap mmol/L BUN (9-20) mg/dL Creatinine (0.66-1.25) mg/dL Est GFR (CKD-EPI)AfAm (>60 ml/min/1.73 sqM) Est GFR (CKD-EPI)NonAf (>60 ml/min/1.73 sqM) Glucose (74-99) mg/dL Calcium (8.4-10.2) mg/dL Magnesium (1.6-2.3) mg/dL Total Bilirubin (0.2-1.3) mg/dL AST (17-59) U/L ALT (4-49) U/L Alkaline Phosphatase (38-126) U/L Troponin I <0.012 <0.012 (0.000-0.034) ng/mL Total Protein (6.3-8.2) g/dL Albumin (3.5-5.0) g/dL Urine Color Light Yellow Urine Appearance Clear (Clear) Urine pH 6.5 (5.0-8.0) Ur Specific [place] 1.020 (1.001-1.035) Urine Protein Negative (Negative) Urine Glucose (UA) Negative (Negative) Urine Ketones Negative (Negative) Urine Blood Negative (Negative) Urine Nitrite Negative (Negative) Urine Bilirubin Negative (Negative) Urine Urobilinogen <2.0 (<2.0) mg/dL Ur Leukocyte Esterase Small H (Negative) Urine RBC 2 (0-5) /hpf Urine WBC 8 H (0-5) /hpf Ur Squamous Epith Cells 1 (0-4) /hpf Urine Mucus Rare H (None) /hpf - Radiology Data Radiology results: report reviewed, image reviewed Disposition Clinical Impression: Hypertensive urgency, Headache, Dizziness Disposition: ADMITTED IP TO THIS [facility] Condition: Stable Referrals: None,Stated [Primary Care Provider] - 1-2 days Time of Disposition: 13:18
[2024-01-09] MEDS: SODIUM CHLORIDE 0.9% 1,000 ML IV ONE (09:08)
[2024-01-09] MEDS: hydrALAZINE HCL 20 MG/ML 1 ML VIAL IVP STA ×2 (09:08→10:11)
[2024-01-09 09:12] LABS: Basophils % (A) 1 %; Eosinophils # (A) 0.1 k/uL (0-0.7); Eosinophils % (A) 2 %; HCT 45.2 % (39.0-53.0); HGB 14.7 gm/dL (13.0-17.5); Lymphocytes # (A) 1.1 k/uL (1.0-4.8); Lymphocytes % (A) 29 %; MCH 33.1 pg (25.0-35.0); MCHC 32.5 g/dL (31.0-37.0); MCV 101.7 fL (80.0-100.0); Macrocytosis Slight; Mean Platelet Volume 7.5; Monocytes # (A) 0.2 k/uL (0-1.0); Monocytes % (A) 6 %; Neutrophils # (A) 2.4 k/uL (1.3-7.7); Neutrophils % (A) 61 %; Platelet Count 194 k/uL (150-450); RBC 4.44 m/uL (4.30-5.90); WBC 3.9 k/uL (3.8-10.6)
[2024-01-09 09:22] LABS: ALT 28 U/L (4-49); African American GFR (CKD) >90 (>60 ml/min/1.73 sqM); Albumin 4.9 g/dL (3.5-5.0); Anion Gap 8 mmol/L; Blood Urea Nitrogen 16 mg/dL (9-20); Calcium 9.6 mg/dL (8.4-10.2); Carbon Dioxide 24 mmol/L (22-30); Chloride 104 mmol/L (98-107); Glucose 96 mg/dL (74-99); Non-African American GFR(CKD) >90 (>60 ml/min/1.73 sqM); Prothrombin Time 10.7 sec (10.0-12.5); Sodium 136 mmol/L (137-145); Total Bilirubin 1.3 mg/dL (0.2-1.3); Total Protein 8.3 g/dL (6.3-8.2)
[2024-01-09 09:23] LABS: AST 44 U/L (17-59); Alkaline Phosphatase 41 U/L (38-126); Magnesium 2.2 mg/dL (1.6-2.3); Potassium 4.5 mmol/L (3.5-5.1)
--- NOTE | 2024-01-09 09:30 | CT ---
EXAMINATION TYPE: CT brain wo con DATE OF EXAM: 01/09/2024 9:25 AM COMPARISON: None. CLINICAL INDICATION: Male, 38 years old with history of dizziness/migraine, Dizziness, TECHNIQUE: Axial CT was performed with sagittal and coronal reformats. IV CONTRAST: , patient injected with mL of . (None if empty) CT DLP: 1154.4 mGycm, Automated exposure control for dose reduction was used. FINDINGS: The ventricles, basal cisterns and sulci overlying the cerebral convexities demonstrate a normal appe arance. There is no evidence for intracranial hemorrhage or sulcal effacement. No mass effects are seen. Osseous calvarium is intact. If symptoms persist consider MRI as clinically warranted. IMPRESSION: 1. No acute intracranial process is seen at this time. [facility], , 01/09/2024 9:28 AM
--- NOTE | 2024-01-09 09:31 | XR ---
EXAMINATION TYPE: XR chest 2V DATE OF EXAM: 01/09/2024 9:27 AM COMPARISON: None. CLINICAL INDICATION: Male, 38 years old with history of dizziness, TECHNIQUE: Frontal and lateral views of the chest are obtained. FINDINGS: There is no focal air space opacity, pleural effusion, or pneumothorax seen. The cardiac silhouette size is within normal limits. The osseous structures are intact. IMPRESSION: No acute cardiopulmonary process. [facility], , 01/09/2024 9:29 AM
[2024-01-09] MEDS: ACETAMINOPHEN TAB 325 MG TAB PO STA (10:03)
[2024-01-09 11:09] LABS: Appearance,Urine Clear (Clear); Bilirubin,Urine Negative (Negative); Blood,Urine Negative (Negative); Color,Urine Light Yellow; Glucose,Urine (UA) Negative (Negative); Ketones,Urine Negative (Negative); Leukocyte Esterase,Urine Small (Negative); Mucus,Urine Rare /hpf; Nitrite,Urine Negative (Negative); PH, Urine 6.5 (5.0-8.0); Protein,Urine Negative (Negative); RBC,Urine 2 /hpf (0-5); Squamous Epithelial Cell,Urine 1 /hpf (0-4); Urobilinogen,Urine <2.0 mg/dL (<2.0); WBC,Urine 8 /hpf (0-5)
[2024-01-09] MEDS: cloNIDine HCL 0.1 MG TAB PO STA (12:23)
[2024-01-09] MEDS ORDERED: NALOXONE 0.4 MG/ML 1 ML VIAL IV PRN (13:15)
[2024-01-09] MEDS: ONDANSETRON 4 MG/2 ML VIAL IVP PRN (14:04)
[2024-01-09] MEDS: IBUPROFEN 400 MG TAB PO PRN (14:05)
--- NOTE | 2024-01-09 14:05 | P.HPIM ---
History of Present Illness This is a pleasant 38 years old -[place] male with no significant past medical history. -Patient presents because of dizziness and migraine as he describes for the last 16 hours Patient states that he has headache 10/10 all over his head, nonspecific in character, his headache improved by movement, no significant relieving factors. Associated with little blurred vision in both eyes without specification. However he denies slurred speech, no weakness or tingling in his extremities. He denies chest pain or dyspnea. No abdominal pain vomiting or diarrhea. No urinary complaints He smokes about 3 to 4 cigarettes/day and he was counseled to quit and he agrees and wants nicotine patch. He drinks alcohol occasionally and uses marijuana. He does not follow-up with PCP although he has medical insurance. He will follow-up with [facility] for his diagnosis of schizophrenia, bipolar and depression, currently he denies suicidal or homicidal ideation but he frequently has visual and auditory hallucination although the are not currently. his girlfriend Karen is at bedside and patient agrees to talk to her about his health issue. I talked to the patient he needs to stay in the hospital and he is agreeable Blood pressure slightly elevated 147/110 Labs unremarkable including CBC, BMP, LFT, INR, troponin x 2 and urine analysis EKG showing sinus rhythm at 64 with evidence of LVH Chest x-ray no acute cardiopulmonary process CT of the brain negative for acute intracranial process Review of Systems Review of systems CONSTITUTIONAL: No fever, no malaise, no fatigue. HEENT: No recent visual problems or hearing problems. Denied any sore throat. CARDIOVASCULAR: No orthopnea, PND, no palpitations, no syncope. PULMONARY: No shortness of breath, no cough, no hemoptysis. GASTROINTESTINAL: No diarrhea, no nausea, no vomiting, no abdominal pain. Normoactive bowel sounds. NEUROLOGICAL: No headaches, no weakness, no numbness. HEMATOLOGICAL: Denies any bleeding or petechiae. GENITOURINARY: Denies any burning micturition, frequency, or urgency. MUSCULOSKELETAL/RHEUMATOLOGICAL: Denies any joint pain, swelling, or any muscle pain. ENDOCRINE: Denies any polyuria or polydipsia. Past Medical History Past Medical History: No Reported History History of Any Multi-Drug Resistant Organisms: None Reported Past Surgical History: Orthopedic Surgery Additional Past Surgical History / Comment(s): eye surgery, surgey on achilles Past Anesthesia/Blood Transfusion Reactions: No Reported Reaction Past Psychological History: Anxiety, Bipolar, Depression, Schizophrenia Smoking Status: Current every day smoker Past Alcohol Use History: Occasional Past Drug Use History: Marijuana, Opiates Medications and Allergies Home Medications Medication Instructions Recorded Confirmed Type ARIPiprazole [Abilify] 10 mg PO DAILY 30 Days #30 tab 07/11/18 Rx Divalproex ER [Depakote ER] 500 mg PO 2100 30 Days #30 07/11/18 Rx tab.er.24h hydrOXYzine pamoate [Vistaril] 25 mg PO TID PRN 30 Days #30 cap 07/11/18 Rx traZODone HCL [Desyrel] 150 mg PO HS 30 Days #90 tab 07/11/18 Rx Sulfamethox-Tmp 800-160Mg [Bactrim 1 tab PO Q12HR 7 Days #14 tab 12/25/23 Rx DS 800-160 mg] Allergies Allergy/AdvReac Type Severity Reaction Status Date / Time No Known Allergies Allergy Verified 12/25/23 21:24 Physical Exam Vitals: Vital Signs Temp Pulse Resp BP Pulse Ox 01/09/24 13:30 75 18 147/110 99 01/09/24 12:17 149/100 01/09/24 11:07 75 18 151/106 98 01/09/24 10:02 75 18 158/110 99 01/09/24 09:37 78 18 155/92 99 01/09/24 08:51 73 18 153/114 99 01/09/24 08:25 97.4 F L 81 20 151/104 99 Intake and Output 01/08/24 01/09/24 01/09/24 22:59 06:59 14:59 Other: Weight 98.43 kg GENERAL: The patient is alert and oriented x3, not in any acute distress. Well developed, well nourished. HEENT: Pupils are round and equally reacting to light. EOMI. No scleral icterus. No conjunctival pallor. Normocephalic, atraumatic. No pharyngeal erythema. No thyromegaly. CARDIOVASCULAR: S1 and S2 present. No murmurs, rubs, or gallops. PULMONARY: Chest is clear to auscultation, no wheezing , no crackles. ABDOMEN: Soft, nontender, nondistended, normoactive bowel sounds. No palpable organomegaly. MUSCULOSKELETAL: No joint swelling or deformity. EXTREMITIES: No cyanosis, clubbing, or pedal edema. NEUROLOGICAL: Gross neurological examination did not reveal any focal deficits. SKIN: No rashes. no petechiae. Results CBC & Chem 7: 01/09/24 09:00 01/09/24 09:00 Labs: Abnormal Lab Results - Last 24 Hours (Table) 01/09/24 01/09/24 01/09/24 Range/Units 09:00 09:00 11:01 MCV 101.7 H (80.0-100.0) fL Sodium 136 L (137-145) mmol/L Total Protein 8.3 H (6.3-8.2) g/dL Ur Leukocyte Esterase Small H (Negative) Urine WBC 8 H (0-5) /hpf Urine Mucus Rare H (None) /hpf Assessment and Plan Assessment: Acute dizziness, nonspecific associated with headache. To rule out neurological case is Dizziness nonspecific with evidence of LVH on EKG Nicotine dependence Schizophrenia bipolar and depression with hallucination Plan: Add Norvasc 5 mg daily Continue with IV hydralazine as needed Continue with Tylenol. Cardiology and neurology consult Also will consult psychiatry service Further recommendation based on the clinical course Patient was counseled to call his health insurance provider to find a nearby PCP and follow-up in 1 week and he agrees, DVT prophylaxis: Subcutaneous heparin GI prophylaxis: Pepcid Prognosis is guarded
[2024-01-09] MEDS: amLODIPine 5 MG TAB PO SCH (14:07)
[2024-01-09] MEDS: HEPARIN SODIUM,PORCINE 5,000 UNIT/ML 1 ML VIAL SQ SCH (21:39)
[2024-01-09] MEDS: FAMOTIDINE 20 MG/2 ML VIAL IV SCH (21:41)
[2024-01-10] MEDS: ACETAMINOPHEN TAB 325 MG TAB PO PRN (08:39)
--- NOTE | 2024-01-10 12:02 | P.CNNES ---
History of Present Illness Consult date: 01/10/24 Reason for Consult: Persistent migraine headache with dizziness. Chief complaint: "My head really hurts." History of Present Illness: Mr. Melvin is a 38-year-old right-handed -[place] male with history of major depression as well as suicidal ideation, schizoaffective disorder, paronychia, hypertensive urgency, headaches since approximately 10 to 15 years ago, anxiety as well as bipolar disorder. The patient was admitted to [facility] [place] yesterday on January 09, 2020 for complaining of a migraine type hea dache which she has had for roughly 16 days. He states that he used to have milder headaches about approximate 10 to 15 years ago however for the past 3 to 4 months he has had increased pain that appears holocranial, pounding, with photo and phonophobia, nausea, dizziness, worse with movement. He states he has not taken medication for this headaches. Approximately 1 year ago the patient was discontinued from some of his psychiatric medications which include valproic acid, which may be helpful for migraines. At this time he does report that his headache is slightly decreased approximately 8 out of 10 in quality but still with photophobia and phonophobia. He is irritable at this time and has multiple questions regarding medication effectiveness. Neurology was consulted for further management recommendations. Review of Systems Constitutional: Reports chronic headaches Eyes: bilateral blurred vision Ears, nose, mouth and throat: Reports as per HPI Cardiovascular: Reports as per HPI Respiratory: Reports as per HPI, Reports dyspnea Gastrointestinal: Reports as per HPI Genitourinary: Reports as per HPI Musculoskeletal: Reports as per HPI Integumentary: Reports rash Neurological: Reports as per HPI Psychiatric: Reports as per HPI Endocrine: Reports as per HPI Past Medical History Past Medical History: No Reported History History of Any Multi-Drug Resistant Organisms: None Reported Past Surgical History: Orthopedic Surgery Additional Past Surgical History / Comment(s): eye surgery, surgey on achilles Past Anesthesia/Blood Transfusion Reactions: No Reported Reaction Smoking Status: Current every day smoker Medications and Allergies Home Medications Medication Instructions Recorded Confirmed Type No Known Home Medications 01/09/24 01/09/24 History Allergies Allergy/AdvReac Type Severity Reaction Status Date / Time No Known Allergies Allergy Verified 01/09/24 14:29 Physical Examination - Vital Signs Vital Signs: Vital Signs Temp Pulse Pulse Resp BP BP Pulse Ox 01/10/24 07:00 97.7 F 63 16 133/86 99 01/10/24 02:00 98.2 F 72 18 138/80 96 01/09/24 20:00 98.3 F 65 18 126/84 96 01/09/24 17:25 97.8 F 64 17 119/81 94 L 01/09/24 17:03 97.0 F L 70 18 117/86 98 01/09/24 16:02 82 18 138/87 100 01/09/24 13:59 86 18 155/104 98 01/09/24 13:30 75 18 147/110 99 01/09/24 12:17 149/100 Intake and Output 01/09/24 01/10/24 01/10/24 22:59 06:59 14:59 Intake Total 480 240 Balance 480 240 Intake: Oral 480 240 Other: # Voids 2 3 Weight 98.43 kg - Constitutional General appearance: average body habitus - EENT EENT: PERRL - Respiratory Respiratory: chest non-tender, lungs clear, normal breath sounds - Cardiovascular Cardiovascular: regular rate, no murmurs Extremities: no peripheral edema bilaterally, no clubbing, cyanosis, no inflammation - Gastrointestinal Gastrointestinal: normoactive bowel sounds, soft, non-tender - Integumentary Integumentary: normal - Neurologic Cranial nerve examination: PERRL, EOMI, VFF, V1/V2/V3 grossly intact, face symmetric, tongue midline, intact Sensorimotor examination: intact Detailed motor examination: full strength in all major muscle groups Detailed sensory examination: intact Reflex and gait examination: intact Results Noncontrast CT of the head from January 08 was negative. Chest x-ray from December 31 was negative., And EKG revealed normal sinus rhythm at 69 bpm. - Laboratory Findings CBC and BMP: 01/09/24 09:00 01/09/24 09:00 Abnormal Lab Findings: Abnormal Labs 01/09/24 01/09/24 01/09/24 09:00 09:00 11:01 MCV 101.7 H Sodium 136 L Total Protein 8.3 H Ur Leukocyte Esterase Small H Urine WBC 8 H Urine Mucus Rare H Assessment and Plan Assessment: Mr. Melvin is a 38-year-old right-handed -[place] male with past medical history likely of migraines. His migraines have increased over the past 3 to 4 months and may correlate with him being off his psychiatric medicines for the past year or so. Plan: 1. I have ordered dexamethasone 12 mg p.o., as well as 6 mg every 6 hours to decrease his headache. I was considering this IV however anxiety appears to have infiltrated and he is reluctant to let a nurse perform another IV. 2. I have not elected to perform any imaging studies at this time as his CT was negative and he does not appear to have any focal neurologic deficits. 3. Neurology will continue to follow patient in house and make further recommendations as needed. Time with Patient: Less than 30
--- NOTE | 2024-01-10 12:34 | P.CN ---
Psychiatric Consult - . Consult date: 01/10/24 Consult:: 01/10/24 11:39 IDENTIFYING DATA: This patient is a 38-year-old male, he is single, he has 4 kids, he is homeless, he collect Social Security disability and SSI REASON FOR REFERRAL: Psychiatry was consulted for schizophrenia hallucinations and bipolar HISTORY OF PRESENT ILLNESS: The patient presented to the hospital initially on 01/08 for dizziness migraines who was found to be in hypertensive urgency endorsing headaches. Patient does have a history of schizoaffective disorder has a noncompliant with his medications as well. Not been going to [facility] for follow-up. Psychiatry is consulted for psychiatric evaluation today due to concerns of increasing psychiatric symptoms. Patient was seen at the bedside fairly pleasant with life underwriter agreeable to speak. He claims that he came in for shortness of breath having severe headaches and also was hypertensive. He states that has been difficult being homeless going to different places, forgetting his medications. He states that he has been off medications for several months if not a year. States that he is feeling fairly depressed at this time, endorsing anxiety as well. States that he has suicidal thoughts, no specific plan at this time, denying any homicidal ideations. States that he is also hearing voices telling him "negative things" such as to hurt himself or others. States that he is having some paranoid thoughts about other people. Claims that his sleep has been poor appetite has been fair. Patients admits to using marijuana regularly, smokes cigarettes PAST PSYCHIATRIC HISTORY: Patient has a a history of schizoaffective disorder. Patient denies being on any psychiatric medications currently however was previously on Abilify Vistaril trazodone. Patient was last psychiatrically hospitalized in 2019 on the mental health unit. Patient denies any psychiatric outpatient follow-up. Claims that he has several attempts to harm himself including overdosing and cutting and also previously was "playing with a gun". Past Medical History: No Reported History History of Any Multi-Drug Resistant Organisms: None Reported Past Surgical History: Orthopedic Surgery Additional Past Surgical History / Comment(s): eye surgery, surgey on achilles Past Anesthesia/Blood Transfusion Reactions: No Reported Reaction Past Psychological History: Anxiety, Bipolar, Depression, Schizophrenia Smoking Status: Current every day smoker Past Alcohol Use History: Occasional Past Drug Use History: Marijuana, Opiates ALLERGIES: as per EMR. CHEMICAL DEPENDENCY HISTORY: as per HPI. FAMILY PSYCHIATRIC/SUBSTANCE USE HISTORY: He states that 2 of his children go to [facility] for psychiatric care however does not know what they specifically have SOCIAL HISTORY: Patient was born and raised in [facility]. Claims that he completed his GED. 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 He is currently homeless, he has 4 kids, he is single. States that he was in halfway and also shelter previously for drug-related charges however did not specify further. MENTAL STATUS EXAM: General Appearance: Patient appears to be tall, thin, stated age is alert, pleasant, and attempts to be cooperative. Patient appears to have fair hygiene and grooming wearing hospital gown with fair eye contact. Behavior: Patient is calmly lying in bed without any agitated behavior., Mildly irritable Speech: Patient's speech is fluent and nonpressured. Mood/Affect: Patient reports their mood is "depressed and anxious", affect is congruent Suicidality/Homicidality: Patient denies having any homicidal ideation intent or plan. He is endorsing suicidal thoughts, no specific plan Perceptions: Patient denies any visual hallucinations endorsing auditory hallucinations telling him to harm himself or others Though content/process: There is no evidence of any delusional thought content and thought process is linear and goal-directed. Memory and concentration: AOX3, grossly intact for the purposes of this session. Can spell "WORLD" backwards Judgment and insight: fair IMPRESSIONS: Suicidal ideations Schizoaffective disorder depressed type Cannabis use disorder Nicotine dependence Homelessness Noncompliance with medications PLAN: -At this time patient DOES meet criteria for inpatient psychiatric admission. -Would recommend the following medication changes/additions: Will start Abilify 5 mg daily for mood stabilization/psychosis, trazodone 50 mg nightly for insomnia/mood, Zoloft 50 mg nightly for mood/anxiety. -Continue 1:1 sitter for safety until patient is safely transferred to the mental health unit -Cannot leave AMA at this time. Patient will need a petition and certification if attempting to leave AMA. -When medically stable, patient is eligible for transfer to a psych bed when available. -Communicated plan to patient's nurse and also patient's hospitalist -Psychiatry will sign off at this time -Please contact with any questions. 01/10/24 12:29
[2024-01-10] MEDS ORDERED: OLANZapine 5 MG TAB PO PRN (13:41)
[2024-01-10] MEDS ORDERED: OLANZapine 10 MG VIAL IM PRN (13:41)
--- NOTE | 2024-01-10 14:47 | P.CRDCN ---
History of Present Illness Consult date: 01/10/24 History of present illness: History of Present Illness: The patient is a 38-year-old male with history of hypertension history of schizophrenia, chronic tobacco and marijuana use who presented with symptoms of dizziness, headache and elevated blood pressure. He has not been taking any medication and his blood pressure was quite elevated on presentation. On presentation he had symptoms of visual and auditory hallucination. Cardiology consultation was requested because of the high blood pressure and symptoms of dizziness. Patient has occasional sharp chest discomfort with deep breathing and occasional palpitations. He denies any syncope. He denies any exertional dyspnea. He has a history of asthma and smokes on a regular basis. He has been told that he has high blood pressure before but has not been on any medication. Medications: None Review of Systems: Respiratory: The patient has a history of asthma GI: No nausea or vomiting . No history of peptic ulcer disease. No recent GI bleed. : No hematuria or dysuria. Nervous System: He has symptoms of headache, dizziness and schizophrenia Physical Examination: 2-year-old male, alert oriented no apparent distress,Blood pressure 119/81, On admission his blood pressure was 150/100, Heart rate 70 Head: Normocephalic. Eyes: Sclerae nonicteric. Neck: Good carotid upstroke, no bruit, no jugular venous distention. Lungs: Clear to auscultation. Heart: Regular rate and rhythm, S1-S2, no S3, no rub. No murmur. Abdomen: Soft nontender, positive bowel sounds no organomegaly. Extremities: No edema, intact distal pulses. Labs: Hemoglobin 14.7, BUN 16, creatinine 1.0, troponin less than 0.012 EKG: Sinus mechanism with LVH and early repolarization changes Impression: 1. Hypertension untreated 2. Symptoms of headache could be worsened by the hypertension 3. History of schizophrenia 4. Chronic tobacco and marijuana use Plan: 1. Continue with amlodipine 5 mg daily 2. Obtain an echocardiogram with Doppler 3. Smoking cessation 4. Depending on the results of the echo further recommendations will be made 5. Thank you for this consult we will follow with you Past Medical History Past Medical History: No Reported History History of Any Multi-Drug Resistant Organisms: None Reported Past Surgical History: Orthopedic Surgery Additional Past Surgical History / Comment(s): eye surgery, surgey on achilles Past Anesthesia/Blood Transfusion Reactions: No Reported Reaction Smoking Status: Current every day smoker Medications and Allergies Home Medications Medication Instructions Recorded Confirmed Type No Known Home Medications 01/09/24 01/09/24 History Allergies Allergy/AdvReac Type Severity Reaction Status Date / Time No Known Allergies Allergy Verified 01/09/24 14:29 Physical Exam Vitals: Vital Signs Temp Pulse Pulse Resp BP BP Pulse Ox 01/10/24 07:00 97.7 F 63 16 133/86 99 01/10/24 02:00 98.2 F 72 18 138/80 96 01/09/24 20:00 98.3 F 65 18 126/84 96 01/09/24 17:25 97.8 F 64 17 119/81 94 L 01/09/24 17:03 97.0 F L 70 18 117/86 98 01/09/24 16:02 82 18 138/87 100 Intake and Output 01/09/24 01/10/24 01/10/24 22:59 06:59 14:59 Intake Total 480 240 Balance 480 240 Intake: Oral 480 240 Other: # Voids 2 3 Weight 98.43 kg Results 01/09/24 09:00 01/09/24 09:00 Current Medications Generic Name Dose Route Start Last Admin Trade Name Freq PRN Reason Stop Dose Admin Acetaminophen 650 mg 01/09/24 13:15 01/10/24 08:39 Acetaminophen Tab 325 Mg Tab PO 650 mg Q6HR PRN Administration Mild Pain or Fever > 100.5 Amlodipine Besylate 5 mg 01/09/24 14:15 01/10/24 08:39 Amlodipine 5 Mg Tab PO 5 mg DAILY ARIEL Administration Aripiprazole 5 mg 01/11/24 09:00 Aripiprazole 5 Mg Tab PO DAILY ARIEL Dexamethasone 6 mg 01/11/24 09:00 Dexamethasone 2 Mg Tab PO DAILY ARIEL Famotidine 20 mg 01/09/24 21:00 01/10/24 08:45 Famotidine 20 Mg/2 Ml Vial IV Not Given Q12HR ARIEL Heparin Sodium (Porcine) 5,000 unit 01/09/24 21:00 01/10/24 08:45 Heparin Sodium,Porcine 5,000 Unit/Ml 1 Ml Vial SQ Not Given Q12HR ARIEL Ibuprofen 400 mg 01/09/24 13:15 01/10/24 10:55 Ibuprofen 400 Mg Tab PO 400 mg Q6HR PRN Administration Mild Pain or Fever > 100.5 Naloxone HCl 0.2 mg 01/09/24 13:15 Naloxone 0.4 Mg/Ml 1 Ml Vial IV Q2M PRN Opioid Reversal Olanzapine 5 mg 01/10/24 13:41 Olanzapine 10 Mg Vial IM QID PRN Agitation Olanzapine 5 mg 01/10/24 13:41 Olanzapine 5 Mg Tab PO QID PRN Agitation Ondansetron HCl 4 mg 01/09/24 13:15 01/09/24 21:41 Ondansetron 4 Mg/2 Ml Vial IVP 4 mg Q8HR PRN Administration Nausea And Vomiting Sertraline HCl 50 mg 01/10/24 21:00 Sertraline 50 Mg Tab PO HS ARIEL Trazodone HCl 50 mg 01/10/24 21:00 Trazodone Hcl 50 Mg Tab PO HS ARIEL Intake and Output 01/09/24 01/10/24 01/10/24 22:59 06:59 14:59 Intake Total 480 240 Balance 480 240 Intake: Oral 480 240 Other: # Voids 2 3 Weight 98.43 kg 01/09/24 09:00 01/09/24 09:00
[2024-01-10] MEDS: dexAMETHasone 4 MG TAB PO STA (16:15)
--- NOTE | 2024-01-10 19:45 | P.PN ---
Subjective This is a pleasant 38 years old -[place]ones[place] male with no significant past medical history. -Patient presents because of dizziness and migraine as he describes for the last 16 hours Patient states that he has headache 10/10 all over his head, nonspecific in character, his headache improved by movement, no significant relieving factors. Associated with little blurred vision in both eyes without specification. However he denies slurred speech, no weakness or tingling in his extremities. He denies chest pain or dyspnea. No abdominal pain vomiting or diarrhea. No urinary complaints He smokes about 3 to 4 cigarettes/day and he was counseled to quit and he agrees and wants nicotine patch. He drinks alcohol occasionally and uses marijuana. He does not follow-up with PCP although he has medical insurance. He will follow-up with [facility] for his diagnosis of schizophrenia, bipolar and depression, currently he denies suicidal or homicidal ideation but he frequently has visual and auditory hallucination although the are not currently. his girlfriend Karen is at bedside and patient agrees to talk to her about his health issue. I talked to the patient he needs to stay in the hospital and he is agreeable Blood pressure slightly elevated 147/110 Labs unremarkable including CBC, BMP, LFT, INR, troponin x 2 and urine analysis EKG showing sinus rhythm at 64 with evidence of LVH Chest x-ray no acute cardiopulmonary process CT of the brain negative for acute intracranial process 01/09 Patient was admitted with headache related to migraine and uncontrolled blood pressure. Also patient is a known schizophrenic. Follow-up with [facility], yesterday he told me he hear voices last saw him to hurt himself at times with some suicidal thoughts . So we consulted psychiatry team. Today I discussed the case with the psychiatrist and he confirms to me he needs to be treated in the psych unit. We talked to the patient he was agreeable to the go to the psych unit but he refused to have a sitter at bedside, because of this patient told severely agitated and tried to leave AMA, Or just to walk out without signing papers naomi holland was called and security team asked to help bring him into his room. I tried to talk to the patient, however he was very agitated. Also mother was at bedside and he allowed me to talk to her. I explained the importance of risk and benefits of this protocol for patient's safety.Immediately changed his mind stating he does not want medication. Because of this earlier also I talked to the neurologist on the case Dr. Drew who told me patient stopped taking valproic acid which might contributed to his migraine. Which also may contribute to worsening schizophrenia or bipolar symptoms. after petition was signed by staff , i put and signed a cert in the paper chart, i do believe pt needs to be treated in the psych unit and that he is at risk to self related to his active psych signs and symptoms As per my discussions with the psychiatrist and neurologist, we all agree with evaluated the patient in the medical unit today and if he is medically stable tomorrow he will be transferred to the psych unit Support also provided for the patient and I offered medication to help him relax but he declines Active Medications Generic Name Dose Route Start Last Admin Trade Name Freq PRN Reason Stop Dose Admin Acetaminophen 650 mg 01/09/24 13:15 01/10/24 08:39 Acetaminophen Tab 325 Mg Tab PO 650 mg Q6HR PRN Administration Mild Pain or Fever > 100.5 Amlodipine Besylate 5 mg 01/09/24 14:15 01/10/24 08:39 Amlodipine 5 Mg Tab PO 5 mg DAILY ARIEL Administration Aripiprazole 5 mg 01/11/24 09:00 Aripiprazole 5 Mg Tab PO DAILY ARIEL Dexamethasone 6 mg 01/11/24 09:00 Dexamethasone 2 Mg Tab PO DAILY AREIL Famotidine 20 mg 01/10/24 21:00 Famotidine 20 Mg Tab PO BID ARIEL Heparin Sodium (Porcine) 5,000 unit 01/09/24 21:00 01/10/24 08:45 Heparin Sodium,Porcine 5,000 Unit/Ml 1 Ml Vial SQ Not Given Q12HR ARIEL Ibuprofen 400 mg 01/09/24 13:15 01/10/24 10:55 Ibuprofen 400 Mg Tab PO 400 mg Q6HR PRN Administration Mild Pain or Fever > 100.5 Naloxone HCl 0.2 mg 01/09/24 13:15 Naloxone 0.4 Mg/Ml 1 Ml Vial IV Q2M PRN Opioid Reversal Olanzapine 5 mg 01/10/24 13:41 Olanzapine 10 Mg Vial IM QID PRN Agitation Olanzapine 5 mg 01/10/24 13:41 Olanzapine 5 Mg Tab PO QID PRN Agitation Ondansetron HCl 4 mg 01/09/24 13:15 01/09/24 21:41 Ondansetron 4 Mg/2 Ml Vial IVP 4 mg Q8HR PRN Administration Nausea And Vomiting Sertraline HCl 50 mg 01/10/24 21:00 Sertraline 50 Mg Tab PO HS ARIEL Trazodone HCl 50 mg 01/10/24 21:00 Trazodone Hcl 50 Mg Tab PO HS [facility] Objective - Vital Signs Vital signs: Vital Signs Temp 97.7 F 01/10/24 07:00 Pulse 63 01/10/24 07:00 Resp 16 01/10/24 07:00 BP 133/86 01/10/24 07:00 Pulse Ox 99 01/10/24 07:00 FiO2 Intake & Output 01/10/24 01/10/24 01/11/24 06:59 18:59 06:59 Intake Total 480 240 Balance 480 240 Intake: Oral 480 240 Other: # Voids 3 2 - Exam GENERAL: The patient is alert and oriented x3, not in any acute distress. Well developed, well nourished. HEENT: Pupils are round and equally reacting to light. EOMI. No scleral icterus. No conjunctival pallor. Normocephalic, atraumatic. No pharyngeal erythema. No thyromegaly. CARDIOVASCULAR: S1 and S2 present. No murmurs, rubs, or gallops. PULMONARY: Chest is clear to auscultation, no wheezing , no crackles. ABDOMEN: Soft, nontender, nondistended, normoactive bowel sounds. No palpable organomegaly. MUSCULOSKELETAL: No joint swelling or deformity. EXTREMITIES: No cyanosis, clubbing, or pedal edema. NEUROLOGICAL: Gross neurological examination did not reveal any focal deficits. SKIN: No rashes. no petechiae. Psychiatric: Impulsive behavior, getting angry easily, mood changes quickly - Labs CBC & Chem 7: 01/09/24 09:00 01/09/24 09:00 Assessment and Plan Assessment: Acute dizziness, nonspecific associated with headache. To rule out neurological causes Dizziness nonspecific with evidence of LVH on EKG Nicotine dependence Schizophrenia bipolar and depression with hallucination Nonadherence to medication Plan: Add Norvasc 5 mg daily Continue with IV hydralazine as needed Continue with Tylenol. Cardiology and neurology consult Psychiatric consult input is appreciated. Patient requires a sitter for safety. Patient cannot leave AMA because he is at risk to self [employer] evaluation Further recommendation based on the clinical course Patient was counseled to call his health insurance provider to find a nearby PCP and follow-up in 1 week and he agrees, DVT prophylaxis: Subcutaneous heparin GI prophylaxis: Pepcid Prognosis is guarded
[2024-01-10] MEDS: traZODone HCL 50 MG TAB PO SCH (20:32)
[2024-01-10] MEDS: FAMOTIDINE 20 MG TAB PO SCH (20:32)
[2024-01-10] MEDS: SERTRALINE 50 MG TAB PO SCH (20:32)
[2024-01-11] MEDS: ARIPiprazole 5 MG TAB PO SCH (09:38)
[2024-01-11] MEDS: dexAMETHasone 2 MG TAB PO SCH (09:46)
--- NOTE | 2024-01-11 11:20 | P.PN ---
Subjective Progress Note Date: 01/11/24 Principal diagnosis: Migraine headache with dizziness. Mr. Melvin is a 38-year-old right-handed -Gren[place] male with history of major depression as well as suicidal ideation, schizoaffective disorder, paronychia, hypertensive urgency, headaches since approximately 10 to 15 years ago, anxiety as well as bipolar disorder. The patient was admitted to [facility] yesterday on January 09, 2020 for complaining of a migraine type headache which she has had for roughly 16 days. He states that he used to have milder headaches about approximate 10 to 15 years ago however for the past 3 to 4 months he has had increased pain that appears holocranial, pounding, with photo and phonophobia, nausea, dizziness, worse with movement. He states he has not taken medication for this headaches. Approximately 1 year ago the patient was discontinued from some of his psychiatric medications which include valproic acid, which may be helpful for migraines. At this time he does report that his headache is slightly decreased approximately 8 out of 10 in quality but still with photophobia and phonophobia. He is irritable at this time and has multiple questions regarding medication effectiveness. When he was seen initially by neurology on January 10, 2004, he was started on dexamethasone 6 mg daily for migraine prophylaxis. He was also seen by psychiatry on January 09 and determined he meets criteria for inpatient admission secondary to danger to himself or others. When checked on January 10, the patient is severely irritable and questions examiner about why he cannot go home. When he was asked about his headache he states "my headache is fine" and then utters some profanity regarding the examiner. His gross neurologic exam appears nonfocal, and the patient does not appear to be in severe distress at this time. Mr. Melvin is a 38-year-old right-handed -Grenadian male with past medical history likely of migraines. His migraines have increased over the past 3 to 4 months and may correlate with him being off his psychiatric medicines for the past year or so. 1. I will discontinue his Decadron and place him on as needed naproxen 500 mg p.o. every 8 hours for increased headache. 2. The patient is due to transfer for psychiatric psychiatric management likely on Saturday. Neurology will tentatively sign off the patient at this time but please reconsult if needed. Objective - Vital Signs Vital signs: Vital Signs Temp 98.0 F 11/30/24 07:00 Pulse 70 01/11/24 07:00 Resp 16 01/11/24 07:00 BP 135/83 01/11/24 07:00 Pulse Ox 98 01/11/24 07:00 FiO2 Intake & Output 01/10/24 01/11/24 01/11/24 18:59 06:59 18:59 Intake Total 800 560 Balance 800 560 Intake: Oral 800 560 Other: Voiding Method Toilet # Voids 2 3 - Labs CBC & Chem 7: 01/09/24 09:00 01/09/24 09:00
--- NOTE | 2024-01-11 15:00 | P.PN ---
Subjective Progress Note Date: 01/11/24 PROGRESS NOTE The patient is a 38-year-old male with history of hypertension history of schizophrenia, chronic tobacco and marijuana use who presented with symptoms of dizziness, headache and elevated blood pressure. He has not been taking any medication and his blood pressure was quite elevated on presentation. On presentation he had symptoms of visual and auditory hallucination. Cardiology consultation was requested because of the high blood pressure and symptoms of dizziness. Patient has occasional sharp chest discomfort with deep breathing and occasional palpitations. He denies any syncope. He denies any exertional dyspnea. He has a history of asthma and smokes on a regular basis. He has been told that he has high blood pressure before but has not been on any medication. January 10 The patient feels better today, his headache is better. He denies any chest discomfort or palpitations he still having problem with his vision. He has declined an echocardiogram yesterday. His blood pressure is under better control. He has been evaluated to be transferred to psychiatry unit on Saturday. He continues to be in sinus mechanism. Medications: Amlodipine 5 mg daily, Abilify, Zoloft, trazodone PHYSICAL EXAMINATION: Blood pressure 133/70 heart rate 70 LUNGS: Clear to auscultation HEART: Regular rate and rhythm, S1, S2. No S3. No systolic murmur ABDOMEN: Soft, nontender, no organomegaly EXTREMETIES: No edema IMPRESSION: 1. Hypertension under better control 2. Headache, improved 3. Chronic tobacco and marijuana use 4. History of schizophrenia PLAN: 1. Continue amlodipine 2. We will see on as-needed basis, please feel free to call us for any questions Objective - Vital Signs Vital signs: Vital Signs Temp 98.1 F 01/11/24 14:05 Pulse 70 01/11/24 14:05 Resp 14 01/11/24 14:05 BP 133/76 01/11/24 14:05 Pulse Ox 98 01/11/24 14:05 FiO2 Intake & Output 01/10/24 01/11/24 01/11/24 18:59 06:59 18:59 Intake Total 800 560 Balance 800 560 Intake: Oral 800 560 Other: Voiding Method Toilet # Voids 2 3 2 - Labs CBC & Chem 7: 01/09/24 09:00 01/09/24 09:00
[2024-01-11] MEDS ORDERED: NAPROXEN 250 MG TAB PO PRN (16:06)
[2024-01-12 08:16] VITALS: BP 138/85; PULSE 73; RESP 17; TEMP 97.7
--- NOTE | 2024-01-12 08:33 | P.PN ---
Subjective This is a pleasant 38 years old -[place] male with no significant past medical history. -Patient presents because of dizziness and migraine as he describes for the last 16 hours Patient states that he has headache 10/10 all over his head, nonspecific in character, his headache improved by movement, no significant relieving factors. Associated with little blurred vision in both eyes without specification. However he denies slurred speech, no weakness or tingling in his extremities. He denies chest pain or dyspnea. No abdominal pain vomiting or diarrhea. No urinary complaints He smokes about 3 to 4 cigarettes/day and he was counseled to quit and he agrees and wants nicotine patch. He drinks alcohol occasionally and uses marijuana. He does not follow-up with PCP although he has medical insurance. He will follow-up with [facility] for his diagnosis of schizophrenia, bipolar and depression, currently he denies suicidal or homicidal ideation but he frequently has visual and auditory hallucination although the are not currently. his girlfriend Karen is at bedside and patient agrees to talk to her about his health issue. I talked to the patient he needs to stay in the hospital and he is agreeable Blood pressure slightly elevated 147/110 Labs unremarkable including CBC, BMP, LFT, INR, troponin x 2 and urine analysis EKG showing sinus rhythm at 64 with evidence of LVH Chest x-ray no acute cardiopulmonary process CT of the brain negative for acute intracranial process 01/09 Patient was admitted with headache related to migraine and uncontrolled blood pressure. Also patient is a known schizophrenic. Follow-up with [facility], yesterday he told me he hear voices last saw him to hurt himself at times with some suicidal thoughts . So we consulted psychiatry team. Today I discussed the case with the psychiatrist and he confirms to me he needs to be treated in the psych unit. We talked to the patient he was agreeable to the go to the psych unit but he refused to have a sitter at bedside, because of this patient told severely agitated and tried to leave AMA, Or just to walk out without signing papers naomi holland was called and security team asked to help bring him into his room. I tried to talk to the patient, however he was very agitated. Also mother was at bedside and he allowed me to talk to her. I explained the importance of risk and benefits of this protocol for patient's safety.Immediately changed his mind stating he does not want medication. Because of this earlier also I talked to the neurologist on the case Dr. Drew who told me patient stopped taking valproic acid which might contributed to his migraine. Which also may contribute to worsening schizophrenia or bipolar symptoms. after petition was signed by staff , i put and signed a cert in the paper chart, i do believe pt needs to be treated in the psych unit and that he is at risk to self related to his active psych signs and symptoms As per my discussions with the psychiatrist and neurologist, we all agree with evaluated the patient in the medical unit today and if he is medically stable tomorrow he will be transferred to the psych unit Support also provided for the patient and I offered medication to help him relax but he declines 01/10 Patient was cleared for discharge by neurologist after control of his migraine headache, he is placed on naproxen. Currently his blood pressure is controlled on Norvasc and head of sales cleared him as well. Patient medically cleared to be transferred to psych unit. CERT already in the chart. Patient discharged to psych unit pending placement. Discussed with the bedside nurse. Patient is needs to be seen by EPS nurse. Objective - Vital Signs Vital signs: Vital Signs Temp 98.1 F 01/11/24 14:05 Pulse 70 01/11/24 14:05 Resp 14 01/11/24 14:05 BP 133/76 01/11/24 14:05 Pulse Ox 98 01/11/24 14:05 FiO2 Intake & Output 01/10/24 01/11/24 01/11/24 18:59 06:59 18:59 Intake Total 800 560 Balance 800 560 Intake: Oral 800 560 Other: Voiding Method Toilet # Voids 2 3 2 - Exam GENERAL: The patient is alert and oriented x3, not in any acute distress. Well developed, well nourished. HEENT: Pupils are round and equally reacting to light. EOMI. No scleral icterus. No conjunctival pallor. Normocephalic, atraumatic. No pharyngeal erythema. No thyromegaly. CARDIOVASCULAR: S1 and S2 present. No murmurs, rubs, or gallops. PULMONARY: Chest is clear to auscultation, no wheezing , no crackles. ABDOMEN: Soft, nontender, nondistended, normoactive bowel sounds. No palpable organomegaly. MUSCULOSKELETAL: No joint swelling or deformity. EXTREMITIES: No cyanosis, clubbing, or pedal edema. NEUROLOGICAL: Gross neurological examination did not reveal any focal deficits. SKIN: No rashes. no petechiae. Psychiatric: Impulsive behavior, getting angry easily, mood changes quickly - Labs CBC & Chem 7: 01/09/24 09:00 01/09/24 09:00 Assessment and Plan Assessment: Acute dizziness, nonspecific associated with headache. To rule out neurological causes Dizziness nonspecific with evidence of LVH on EKG Nicotine dependence Schizophrenia bipolar and depression with hallucination Nonadherence to medication Plan: Add Norvasc 5 mg daily. Currently blood pressure controlled Continue with IV hydralazine as needed Continue with Tylenol. Cardiology and neurology consult both cleared the patient to go to [facility]. Psychiatric consult input is appreciated. Patient requires a sitter for safety. Patient cannot leave AMA because he is at risk to self Further recommendation based on the clinical course Patient was counseled to call his health insurance provider to find a nearby PCP and follow-up in 1 week and he agrees, DVT prophylaxis: Subcutaneous heparin GI prophylaxis: Pepcid Prognosis is guarded Patient medically stable and can be discharged to psych unit. Discharge order placed pending EPS nurse evaluation and placement
[2024-01-12] MEDS ORDERED: ALBUTEROL NEBULIZED (CONC) 5 MG, SODIUM CHLORIDE 0.9% NEBULIZ 3 ML INHALATION PRN (10:50)
--- NOTE | 2024-01-12 12:20 | P.DS ---
Providers Date of admission: 01/09/24 13:07 Attending physician: Lenard Carlson MD Consults: 01/09/24 13:15 Consult Physician Urgent Consulting Provider: Della Larsen Consult Reason/Comments: LVH and hypertension Do you want consulting provider notified?: Yes Consult Physician Urgent Consulting Provider: Rajendra Wilson Consult Reason/Comments: headache/hypertension Do you want consulting provider notified?: Yes 01/09/24 13:56 Consult Physician Routine Consulting Provider: Buster Blackwell Consult Reason/Comments: schizophrenia with hallucination and bipolar Do you want consulting provider notified?: Yes Primary care physician: Stated None Hospital Course: Diagnoses: Schizophrenia bipolar and depression with hallucination. Also with suicidal ideation. Patient is going to [facility]. upon discharge Acute dizziness, nonspecific associated with headache. T secondary to migraine, improved Dizziness nonspecific with evidence of LVH on EKG Nicotine dependence Nonadherence to medication Hospital course: Hospital course: his is a pleasant 38 years old -[place]i male with past medical history of schizophrenia. He follows up with [facility]. Patient presents initially with headache and dizziness secondary to migraine headache. Patient evaluated by neurologist. Looks like patient also recently stopped his valproic acid which might contributing factor. Patient currently his headache and dizziness controlled with medication and he was cleared by neurologist to be discharged on naproxen. Patient however was found to have active symptoms of thyroidectomy schizophrenia. He got this symptoms frequently with visual and auditory hallucinations. Hearing voices to hurt himself, he was evaluated by psychiatrist and he recommended to be transferred to psych unit for management for his schizophrenia and suicidal ideation. cert was signed after pt was petitioned Admission his blood pressure was elevated and currently controlled with Norvasc Patient currently calm denies any specific symptoms like chest pain or dyspnea or GI symptoms Patient was cleared for discharge by all consultants Problems and management plan were discussed with the patient and he verbalized understanding and acceptance Patient was found stable and can be discharged home in guarded prognosis however he needs follow-up as an outpatient. Patient was instructed to follow up with PCP within one week and patient agrees Patient need to be transferred to [address] [facility] discussed with staff to be escorted by security team Physical exam Gen: patient is a AAOx3, no distress CVS: S1-S2, RRR, no murmur Lungs: B/L CTA, no wheezing Abdomen: soft, no distention, no tenderness, positive bowel sounds Extremity: no leg edema or induration Time spent more than 35 minutes Patient Condition at Discharge: Stable Plan - Discharge Summary Discharge Rx Participant: No New Discharge Prescriptions: New ARIPiprazole [Abilify] 5 mg PO DAILY tab Sertraline [Zoloft] 50 mg PO HS tab Naproxen [Naprosyn] 500 mg PO TID PRN tab PRN Reason: Headache amLODIPine [Norvasc] 5 mg PO DAILY tab Acetaminophen Tab [Tylenol] 650 mg PO Q6HR PRN tab PRN Reason: Mild Pain Or Fever > 100.5 OLANZapine [ZyPREXA] 5 mg PO QID PRN tab PRN Reason: Agitation Discharge Medication List ARIPiprazole [Abilify] 5 mg PO DAILY tab 01/11/24 [Rx] Acetaminophen Tab [Tylenol] 650 mg PO Q6HR PRN tab 01/11/24 [Rx] Naproxen [Naprosyn] 500 mg PO TID PRN tab 01/11/24 [Rx] OLANZapine [ZyPREXA] 5 mg PO QID PRN tab 01/11/24 [Rx] Sertraline [Zoloft] 50 mg PO HS tab 01/11/24 [Rx] amLODIPine [Norvasc] 5 mg PO DAILY tab 01/11/24 [Rx] Follow up Appointment(s)/Referral(s): None,Stated [Primary Care Provider] - 1-2 days Patient Instructions/Handouts: Hypertension (DC) Discharge Disposition: TRANSFER TO PSYCH HOSP/UNIT
== END 2024-01-12 14:40 | DRG 103 ==
LOC: EC 08:23 → 6NMEDSUR 13:07 → OBSVTOIN 01-10 19:49 → UNDODISOB 01-12 14:40
PROVIDERS: ADMIT Internal Medicine; ATTEND Internal Medicine
DX: G43.909 Migraine, unspecified, not intractable, without status migrainosus (principal); R45.851 Suicidal ideations; Z59.00 Homelessness unspecified; I16.0 Hypertensive urgency; I10 Essential (primary) hypertension; F25.1 Schizoaffective disorder, depressive type; F31.9 Bipolar disorder, unspecified; F41.9 Anxiety disorder, unspecified; J45.909 Unspecified asthma, uncomplicated; F12.10 Cannabis abuse, uncomplicated; F17.210 Nicotine dependence, cigarettes, uncomplicated; Z91.148 Patient's other noncompliance with medication regimen for other reason; Z79.899 Other long term (current) drug therapy; T42.6X6A Underdosing of other antiepileptic and sedative-hypnotic drugs, initial encounter; T46.5X6A Underdosing of other antihypertensive drugs, initial encounter; Z91.128 Patient's intentional underdosing of medication regimen for other reason; Z56.0 Unemployment, unspecified; E89.0 Postprocedural hypothyroidism; H53.149 Visual discomfort, unspecified
CPT/HCPCS: 36415; 70450; 71046; 80053; 80164; 81001; 83735; 84484; 85025; 85610; 85730; 87636; 93005; 96361; 96374; 96375; 96376; 99285

== ENCOUNTER 2024-01-12 11:30 | Inpatient (IN) | payer MEDICARE, MEDICAID ==
[2024-01-12] MEDS ORDERED: OLANZapine 5 MG TAB PO PRN (12:03)
[2024-01-12] MEDS ORDERED: OLANZapine 10 MG VIAL IM PRN (12:03)
[2024-01-12] MEDS ORDERED: MAGNESIUM HYDROXIDE 2,400 MG/30 ML CUP PO PRN (12:03)
[2024-01-12] MEDS ORDERED: MAG HYDROX/AL HYDROX/SIMETH 355 ML BOTTLE PO PRN (12:03)
[2024-01-12 15:45] VITALS: RESP 16
[2024-01-12] MEDS: traZODone HCL 50 MG TAB PO SCH (20:58)
[2024-01-12] MEDS: SERTRALINE 50 MG TAB PO SCH (20:58)
[2024-01-12] MEDS: FAMOTIDINE 20 MG TAB PO SCH (20:59)
--- NOTE | 2024-01-13 03:18 | P.CONS ---
History of Present Illness - Reason for Consult Consult date: 01/13/24 - History of Present Illness The patient is a 38-year-old male with a PMH of hypertension who had presented to the emergency room for dizziness. The patient was initially admitted to the medical service for the above complaint which was eventually attributed to migraine versus possibly secondary to hypertension. The patient was subsequently transferred to the mental health unit where he was seen and evaluated. The patient has a history of schizophrenia with bipolar disorder and was reportedly having hallucinations. Patient reported feeling well at the time of interview and had no active complaints. He denied experiencing chest discomfort, shortness of breath, fever, chills, cough, nausea, vomiting, abdominal pain, diarrhea. He does report recreational marijuana use and smoking 3 cigarettes daily. Review of systems: Pertinent positives and negatives as discussed in HPI, a complete review of systems was performed and all other systems are negative. Physical examination: General: non toxic, no distress, appears at stated age, normal weight Derm: no unusual rashes/lesions, no unusual ecchymoses, warm, dry Head: atraumatic, normocephalic, symmetric Eyes: EOMI, no lid lag, anicteric sclera ENT: Nose and ears atraumatic, no thrush, no pharyngeal erythema Neck: trachea midline, supple Mouth: no lip lesion, mucus membranes moist Cardiovascular: S1S2 reg, no murmur, no edema Lungs: CTA bilateral, no rhonchi, no rales , no accessory muscle use Abdominal: soft, nontender to palpation, no guarding Ext: no gross muscle atrophy, no contractures, Neuro: No gross focal neuro deficits noted Psych: Alert, oriented, appropriate affect Assessment: Marijuana abuse Hypertension Schizophrenia and bipolar disorder Plan: Advised on the importance of cessation from substance use Continue with Norvasc 5 mg p.o. daily for now Defer management of schizophrenia and bipolar disorder to primary psychiatry service Thank you for allowing us to participate in the care of this patient. We will follow peripherally. Do not hesitate to contact us with questions. Someone can be reached from the [facility] hospitalist group at all hours of the day at [phone]. Past Medical History Past Medical History: No Reported History History of Any Multi-Drug Resistant Organisms: None Reported Past Surgical History: Orthopedic Surgery Additional Past Surgical History / Comment(s): eye surgery, surgey on achilles Past Anesthesia/Blood Transfusion Reactions: No Reported Reaction Smoking Status: Former smoker Medications and Allergies Home Medications Medication Instructions Recorded Confirmed Type ARIPiprazole [Abilify] 5 mg PO DAILY tab 01/11/24 Rx Acetaminophen Tab [Tylenol] 650 mg PO Q6HR PRN tab 01/11/24 Rx Naproxen [Naprosyn] 500 mg PO TID PRN tab 01/11/24 Rx OLANZapine [ZyPREXA] 5 mg PO QID PRN tab 01/11/24 Rx Sertraline [Zoloft] 50 mg PO HS tab 01/11/24 Rx amLODIPine [Norvasc] 5 mg PO DAILY tab 01/11/24 Rx Allergies Allergy/AdvReac Type Severity Reaction Status Date / Time No Known Allergies Allergy Verified 01/09/24 14:29 Physical Exam Vitals: Vital Signs Temp Pulse Resp BP Pulse Ox 01/12/24 15:05 97.7 F 77 16 135/95 99 Intake and Output 01/12/24 01/12/24 01/13/24 14:59 22:59 06:59 Other: Weight 98.43 kg 92.703 kg
[2024-01-13 08:13] LABS: ALT 21 U/L (4-49); AST 21 U/L (17-59); Albumin 4.2 g/dL (3.5-5.0); Alkaline Phosphatase 50 U/L (38-126); Bilirubin,Unconjugated 0.8 mg/dL (0.0-1.1); Total Bilirubin 0.8 mg/dL (0.2-1.3); Total Protein 7.1 g/dL (6.3-8.2)
[2024-01-13] MEDS: amLODIPine 5 MG TAB PO SCH (08:54)
[2024-01-13] MEDS: ARIPiprazole 5 MG TAB PO SCH (08:54)
[2024-01-13] MEDS: ACETAMINOPHEN TAB 325 MG TAB PO PRN (08:56)
[2024-01-13] MEDS: NICOTINE 14MG/24HR PATCH TRANSDERM SCH (08:57)
--- NOTE | 2024-01-13 12:03 | P.HP ---
Psychiatric H&P - . H&P Date: 01/13/24 History & Physical: Allergies Allergy/AdvReac Type Severity Reaction Status Date / Time No Known Allergies Allergy Verified 01/09/24 14:29 Vital Signs Temp 98 F 01/13/24 06:21 Pulse 71 01/13/24 06:21 Resp 16 01/13/24 06:21 BP 130/82 01/13/24 06:21 Pulse Ox 98 01/13/24 06:21 FiO2 Intake & Output 01/12/24 01/13/24 01/13/24 18:59 06:59 18:59 Weight 92.703 kg Laboratory Last Values Estimated Ave Glu mg/dL 97 mg/dL 01/13/24 07:28 Hemoglobin A1c 5.0 % (<=6.0) 01/13/24 07:28 Total Bilirubin 0.8 mg/dL (0.2-1.3) 01/13/24 07:28 Conjugated Bilirubin 0.0 mg/dL (0.0-0.3) 01/13/24 07:28 Unconjugated Bilirubin 0.8 mg/dL (0.0-1.1) 01/13/24 07:28 Delta Bilirubin 0.0 mg/dL (0.0-0.2) 01/13/24 07:28 AST 21 U/L (17-59) 01/13/24 07:28 ALT 21 U/L (4-49) 01/13/24 07:28 Alkaline Phosphatase 50 U/L (38-126) 01/13/24 07:28 Total Protein 7.1 g/dL (6.3-8.2) 01/13/24 07:28 Albumin 4.2 g/dL (3.5-5.0) 01/13/24 07:28 01/13/24 10:29 IDENTIFYING DATA: This patient is a 38-year-old male, he is single, he has 4 kids, he is homeless, he collect Social Security disability and SSI HISTORY OF PRESENT ILLNESS: Patient was seen initially by mortgage underwriter on 01/09 for a psychiatric consult and as per note "The patient presented to the hospital initially on 01/08 for dizziness migraines who was found to be in hypertensive urgency endorsing headaches. Patient does have a history of schizoaffective disorder has a noncompliant with his medications as well. Not been going to [facility] for follow-up. Psychiatry is consulted for psychiatric evaluation today due to concerns of increasing psychiatric symptoms. Patient was seen at the bedside fairly pleasant with mortgage underwriter agreeable to speak. He claims that he came in for shortness of breath having severe headaches and also was hypertensive. He states that has been difficult being homeless going to different places, forgetting his medications. He states that he has been off medications for several months if not a year. States that he is feeling fairly depressed at this time, endorsing anxiety as well. States that he has suicidal thoughts, no specific plan at this time, denying any homicidal ideations. States that he is also hearing voices telling him "negative things" such as to hurt himself or others. States that he is having some paranoid thoughts about other people. Claims that his sleep has been poor appetite has been fair. Patients admits to using marijuana regularly, smokes cigarettes". Patient was seen today laying in bed agreeable to speak to mortgage underwriter. He states that he is doing a bit better today, claims that his mood and anxiety have been improving since being on the medications. He states that he has been interacting more with other people on the unit since being admitted. States that he is feeling "calmer" and less irritable. States that the voices have been calming down with the medications, states that he is not having any suicidal homicidal ideations intent or plan. Denies any visual hallucinations. Claims that his sleep and appetite are fair at this time. PAST PSYCHIATRIC HISTORY: Patient has a a history of schizoaffective disorder. Patient denies being on any psychiatric medications currently however was previously on Abilify Vistaril trazodone. Patient was last psychiatrically hospitalized in 2019 on the mental health unit. Patient denies any psychiatric outpatient follow-up. Claims that he has several attempts to harm himself including overdosing and cutting and also previously was "playing with a gun". Past Medical History: No Reported History History of Any Multi-Drug Resistant Organisms: None Reported Past Surgical History: Orthopedic Surgery Additional Past Surgical History / Comment(s): eye surgery, surgey on achilles Past Anesthesia/Blood Transfusion Reactions: No Reported Reaction Past Psychological History: Anxiety, Bipolar, Depression, Schizophrenia Smoking Status: Current every day smoker Past Alcohol Use History: Occasional Past Drug Use History: Marijuana, Opiates ALLERGIES: as per EMR. CHEMICAL DEPENDENCY HISTORY: as per HPI. FAMILY PSYCHIATRIC/SUBSTANCE USE HISTORY: He states that 2 of his children go to [facility] for psychiatric care however does not know what they specifically have SOCIAL HISTORY: Patient was born and raised in [facility]. Claims that he completed his GED. 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 He is currently homeless, he has 4 kids, he is single. States that he was in nursing home and also [facility] previously for drug-related charges however did not specify further. MENTAL STATUS EXAM: General Appearance: Patient appears to be tall, thin, stated age is alert, pleasant, and attempts to be cooperative. Patient appears to have fair hygiene and grooming wearing hospital gown with fair eye contact. Behavior: Patient is calmly lying in bed without any agitated behavior., Less irritable today Speech: Patient's speech is fluent and nonpressured. Mood/Affect: Patient reports their mood is "better", affect is congruent and improving Suicidality/Homicidality: Patient denies having any homicidal ideation intent or plan. Denies any suicidal thoughts. Perceptions: Patient denies any visual hallucinations and denies any auditory hallucinations Though content/process: There is no evidence of any delusional thought content and thought process is linear and goal-directed. [place] Memory and concentration: AOX3, grossly intact for the purposes of this session. Can spell "WORLD" backwards Judgment and insight: fair IMPRESSIONS: Schizoaffective disorder depressed type Cannabis use disorder Nicotine dependence Homelessness Noncompliance with medications STRENGTHS/WEAKNESSES: strength is that patient is resilient. Weakness is that patient has poor judgment and is impulsive INTELLECT: Average PLAN: -Patient is admitted under voluntary status to MHU for stabilization of psychiatric symptoms and safety. Patient has signed adult voluntary form and medication consent and is placed in patient's chart. -Medications : Zoloft 50 mg nightly for mood/anxiety, Abilify 5 mg daily for mood stabilization/psychosis, trazodone 50 mg nightly for insomnia/mood. -Zyprexa PRN for agitation/aggression -Patient was counselled on substance abuse and desired to cut back on use -Patient was informed of the risks, benefits and side effects of the medication and patient verbally consented to taking the medications. Patient signed med consent form and was placed in chart. -Internal Medicine consult to perform medical evaluation and physical. -NRT -nicotine patch -SW on board for discharge planning. Encourage patient to participate in groups to work on coping skills. 01/13/24 12:03
[2024-01-13] MEDS: CLOTRIMAZOLE 1% CREAM 30 GM TUBE TOPICAL SCH (14:49)
[2024-01-13 16:09] LABS: Chol/HDL Ratio 2.38 Ratio; LDL Cholesterol,Calculated 80.7 mg/dL (0.0-131.0); VLDL Calculation 10.28 mg/dL (5.00-40.00)
[2024-01-13 16:48] VITALS: BMI 25.5
[2024-01-13] MEDS: ALBUTEROL INHALER 60 PUFF/8 GM INHALER (MHU) INHALATION PRN (22:16)
[2024-01-14 06:58] VITALS: TEMP 97
--- NOTE | 2024-01-14 10:30 | P.PN ---
Progress Note - Text Progress Note Date: 01/14/24 Interval History: Patient was seen today for psychiatric follow up. Patient claims that he has been taking the medications has been doing fairly well. He claims that he wants to stay on the same dose of medications at the same time. He remains fairly superficial about his symptoms, states that he has been getting along with others on the unit. We spoke about the benefits of getting transitioned onto the long-acting injection however he wants to remain on the pills at this time. He states that he was able to sleep fairly last night about 6 or 7 hours, claims that he has been eating well. Denies any suicidal homicidal ideations intent or plan, denies any auditory or visual hallucinations today. Not reporting any side effects. MENTAL STATUS EXAM: General Appearance: Patient appears to be tall, thin, stated age is alert, pleasant, and attempts to be cooperative. Patient appears to have fair hygiene and grooming wearing hospital gown with fair eye contact. Behavior: Patient is calmly lying in bed without any agitated behavior., Less irritable today, more cooperative Speech: Patient's speech is fluent and nonpressured. Mood/Affect: Patient reports their mood is "fine", affect is congruent and improving Suicidality/Homicidality: Patient denies having any homicidal ideation intent or plan. Denies any suicidal thoughts. Perceptions: Patient denies any visual hallucinations and denies any auditory hallucinations Though content/process: There is no evidence of any delusional thought content and thought process is linear and goal-directed. [place], improving Memory and concentration: AOX3, grossly intact for the purposes of this session. Judgment and insight: Superficial, proving mildly IMPRESSIONS: Schizoaffective disorder depressed type Cannabis use disorder Nicotine dependence Homelessness Noncompliance with medications PLAN: -Patient is admitted under voluntary status to MHU for stabilization of psychiatric symptoms and safety. Patient has signed adult voluntary form and medication consent and is placed in patient's chart. -Medications : Zoloft 50 mg nightly for mood/anxiety, Abilify 5 mg daily for mood stabilization/psychosis, trazodone 50 mg nightly for insomnia/mood. -Zyprexa PRN for agitation/aggression -NRT -nicotine patch -SW on board for discharge planning. Encourage patient to participate in groups to work on coping skills. hopeful for discharge , patient wants to go to a retirement upon discharge
[2024-01-14] MEDS: NAPROXEN 250 MG TAB PO PRN (22:03)
--- NOTE | 2024-01-15 11:36 | P.PN ---
Progress Note - Text Progress Note Date: 01/15/24 Interval History: Patient was seen today for psychiatric follow up. Patient claims that he has been taking the medications has been doing fairly well. Patient states that he is willing to stay at his mother's house upon discharge. Claims that he would like to have the Abilify switched to nighttime and is agreeable to go up on the dose today. He also claims that he would like to take the Zoloft during the day. States that he did have a difficult time sleeping last night. He was fairly focused on discharge. He remains fairly superficial about his symptoms, states that he has been getting along with others on the unit, participating in groups. he has been eating well. Denies any suicidal homicidal ideations intent or plan, denies any auditory or visual hallucinations today. Not reporting any side effects. MENTAL STATUS EXAM: General Appearance: Patient appears to be tall, thin, stated age is alert, pleasant, and attempts to be cooperative. Patient appears to have fair hygiene and grooming wearing hospital gown with fair eye contact. Behavior: Patient is calmly lying in bed without any agitated behavior., more cooperative Speech: Patient's speech is fluent and nonpressured. Mood/Affect: Patient reports their mood is "ok", affect is congruent and improving Suicidality/Homicidality: Patient denies having any homicidal ideation intent or plan. Denies any suicidal thoughts. Perceptions: Patient denies any visual hallucinations and denies any auditory hallucinations Though content/process: There is no evidence of any delusional thought content and thought process is linear and goal-directed. [place], improving Memory and concentration: AOX3, grossly intact for the purposes of this session. Judgment and insight: improving mildly IMPRESSIONS: Schizoaffective disorder depressed type Cannabis use disorder Nicotine dependence Homelessness Noncompliance with medications PLAN: -Patient is admitted under voluntary status to MHU for stabilization of psychiatric symptoms and safety. Patient has signed adult voluntary form and medication consent and is placed in patient's chart. -Medications : change Zoloft 50 mg daily for mood/anxiety, change Abilify 7.5 mg qhs for mood stabilization/psychosis, increase trazodone 100 mg nightly for insomnia/mood. -Zyprexa PRN for agitation/aggression -NRT -nicotine patch -SW on board for discharge planning. Encourage patient to participate in groups to work on coping skills. hopeful for discharge tomorrow, patient wants to go to his mothers house
[2024-01-15] MEDS: SERTRALINE 50 MG TAB PO SCH (12:51)
[2024-01-15] MEDS: traZODone HCL 100 MG TAB PO SCH (20:57)
[2024-01-15] MEDS: ARIPiprazole 15 MG TAB PO SCH (20:57)
[2024-01-15] MEDS ORDERED: ARIPiprazole 5 MG TAB PO SCH (21:00)
[2024-01-16 08:04] VITALS: BP 138/92; PULSE 81
--- NOTE | 2024-01-16 11:15 | P.DS ---
Providers Date of admission: 01/12/24 15:03 Expected date of discharge: 01/16/24 Attending physician: Buster Blackwell MD Consults: 01/12/24 12:03 Consult Physician Routine Consulting Provider: Keshia Russo Consult Reason/Comments: Medical H&P Do you want consulting provider notified?: Yes Primary care physician: Stated None - Discharge Diagnosis(es) (1) Schizoaffective disorder, depressive type Current Visit: Yes Status: Acute Priority: High (2) Cannabis use disorder Current Visit: Yes Status: Acute Priority: Medium (3) Nicotine dependence Current Visit: Yes Status: Acute Priority: Low (4) Homelessness Current Visit: Yes Status: Acute Priority: Medium (5) Non compliance w medication regimen Current Visit: Yes Status: Acute Priority: Medium Hospital Course: Admission HPI: Admission note was completed by technical writer "this patient is a 38-year-old male, he is single, he has 4 kids, he is homeless, he collect Social Security disability and SSI. Patient was seen initially by technical writer on 01/09 for a psychiatric consult and as per note "The patient presented to the hospital initially on 01/08 for dizziness migraines who was found to be in hypertensive urgency endorsing headaches. Patient does have a history of schizoaffective disorder has a noncompliant with his medications as well. Not been going to [facility] for follow-up. Psychiatry is consulted for psychiatric evaluation today due to concerns of increasing psychiatric symptoms. Patient was seen at the bedside fairly pleasant with technical writer agreeable to speak. He claims that he came in for shortness of breath having severe headaches and also was hypertensive. He states that has been difficult being homeless going to different places, forgetting his medications. He states that he has been off medications for several months if not a year. States that he is feeling fairly depressed at this time, endorsing anxiety as well. States that he has suicidal thoughts, no specific plan at this time, denying any homicidal ideations. States that he is also hearing voices telling him "negative things" such as to hurt himself or others. States that he is having some paranoid thoughts about other people. Claims that his sleep has been poor appetite has been fair. Patients admits to using marijuana regularly, smokes cigarettes". Patient was seen today laying in bed agreeable to speak to technical writer. He states that he is doing a bit better today, claims that his mood and anxiety have been improving since being on the medications. He states that he has been interacting more with other people on the unit since being admitted. States that he is feeling "calmer" and less irritable. States that the voices have been calming down with the medications, states that he is not having any suicidal homicidal ideations intent or plan. Denies any visual hallucinations. Claims that his sleep and appetite are fair at this time." Hospital course: Upon admission to the unit patient was directable and agreeable to commence treatment and signed adult voluntary form. Patient got along well with other patients on the unit and followed unit protocol. Patient was compliant with the medications and denied any side effects throughout hospital course. Patient was started on Zoloft 50 mg daily for mood/anxiety, Abilify p.o 7.5 mg nightly for mood stabilization/psychosis, trazodone 100 mg nightly for insomnia/mood. Patient spoke of his stressors and engaged in therapy both group and individual. Patient was also seen by medical team for history and physical exam. Throughout the course of the hospitalization patient gradually improved with regards to mood, anxiety, psychosis/hallucinations, sleep and returned back to their baseline level of functioning. On the day of discharge patient denied any suicidal or homicidal ideations intent or plan denied any auditory or visual hallucinations. Patient endorsed wanting to live for their health and family. The patient denied any access to guns or weapons. Patient denied any paranoia and did not endorse any delusions. Patient does have a significant history of substance abuse and was counseled on abstaining from all substances including alcohol and marijuana. Patient elected to do outpatient substance use treatment program through their outpatient provider.. Patient was also counseled on the medications and need for regular compliance and was encouraged to follow-up with their outpatient appointment for mental health and also for primary care. Prior to discharge a family meeting will be arranged by social services designee to answer any questions and ensure safety upon discharge incuding making sure that guns/weapons are either removed from the home or locked away. Patient will be discharged to his mother's house today, following up at [facility]. Mental status exam: General Appearance: Patient appears to be thin, tall, using a wheelchair, stated age is alert, pleasant, and cooperative. Patient is in no acute distress and has improved hygiene and grooming Behavior: Patient is calmly seated without any agitated behavior. Pleasant today Speech: Patient's speech is fluent and nonpressured. Mood/Affect: Patient reports their mood is "better good", affect is congruent and euthymic. Suicidality/Homicidality: Patient denies having any suicidal or homicidal ideation intent or plan. Perceptions: Patient denies any auditory or visual hallucinations. Though content/process: There is no evidence of any delusional thought content and thought process is linear and goal-directed. More future oriented Memory and concentration: AOX3, grossly intact for the purposes of this session. Can spell "WORLD" backwards correctly. Judgment and insight: Improved with guarded prognosis Impression: Schizoaffective disorder depressive type Cannabis use disorder Homelessness Noncompliance with medication regimen Nicotine dependence Plan: -Continue with discharge today as patient has improved and stabilized psychiatrically and is not currently an imminent threat to themself and/or others. -Continue medications: Zoloft 50 mg daily for mood/anxiety, Abilify p.o. 7.5 mg nightly for mood stabilization/psychosis, trazodone 100 mg nightly for insomnia/mood. -Patient was counseled on the need for medication compliance and appropriate follow-up at mental health and also primary care for medical issues. Patient verbalized understanding and agreed. -Social work to arrange for and conduct family meeting to ensure safety upon discharge and answer any questions/concerns. also to ensure safe home environment that guns/weapons are either removed from the home or locked away. Social work also to arrange for patients follow up appointments with [facility] for psychiatric care along with follow up with primary care provider. -Patient counseled on abstaining from recreational drugs and marijuana and alcohol. Was informed/educated on the adverse effects on their physical and mental health. Patient verbally agreed and understood. Patient was offered substance abuse treatment however declined at this time. -Patient was instructed to return to the hospital or seek immediate medical care if their psychiatric or medical symptoms do worsen or reoccur. Allergies Allergy/AdvReac Type Severity Reaction Status Date / Time No Known Allergies Allergy Verified 01/09/24 14:[address] Glu mg/dL 97 mg/dL 01/13/24 07:28 Hemoglobin A1c 5.0 % (<=6.0) 01/13/24 07:28 Total Bilirubin 0.8 mg/dL (0.2-1.3) 01/13/24 07:28 Conjugated Bilirubin 0.0 mg/dL (0.0-0.3) 01/13/24 07:28 Unconjugated Bilirubin 0.8 mg/dL (0.0-1.1) 01/13/24 07:28 Delta Bilirubin 0.0 mg/dL (0.0-0.2) 01/13/24 07:28 AST 21 U/L (17-59) 01/13/24 07:28 ALT 21 U/L (4-49) 01/13/24 07:28 Alkaline Phosphatase 50 U/L (38-126) 01/13/24 07:28 Total Protein 7.1 g/dL (6.3-8.2) 01/13/24 07:28 Albumin 4.2 g/dL (3.5-5.0) 01/13/24 07:28 Triglycerides 51.40 mg/dL (0.00-149.00) 01/13/24 07:28 Cholesterol 157.00 mg/dL (0.00-200.00) 01/13/24 07:28 LDL Cholesterol, Calc 80.7 mg/dL (0.0-131.0) 01/13/24 07:28 VLDL Cholesterol, Calc 10.28 mg/dL (5.00-40.00) 01/13/24 07:28 HDL Cholesterol 66.00 mg/dL (40.00-60.00) H 01/13/24 07:28 Cholesterol/HDL Ratio 2.38 Ratio 01/13/24 07:28 Vital Signs Temp 97 F L 01/14/24 06:22 Pulse 81 01/16/24 08:04 Resp 16 01/14/24 06:22 BP 138/92 01/16/24 08:04 Pulse Ox 99 01/14/24 06:22 FiO2 Patient Condition at Discharge: Stable Plan - Discharge Summary Discharge Rx Participant: No New Discharge Prescriptions: New ARIPiprazole [Abilify] 7.5 mg PO HS 30 Days #15 tab Clotrimazole Cream [Lotrimin Cream] 1 applic TOPICAL BID 30 Days #1 each Naproxen [Naprosyn] 500 mg PO TID PRN 30 Days #180 tab PRN Reason: Headache Acetaminophen Tab [Tylenol Tab] 500 mg PO TID PRN 30 Days #90 tablet PRN Reason: Pain Albuterol Inhaler [Ventolin Hfa Inhaler] 2 puff INHALATION RT-QID PRN 30 Days #1 each PRN Reason: Shortness Of Breath Or Wheezing traZODone HCL [Desyrel] 100 mg PO HS 30 Days #30 tab Nicotine 14Mg/24Hr Patch [Habitrol] 1 patch TRANSDERM DAILY 14 Days #14 patch Sertraline [Zoloft] 50 mg PO DAILY 30 Days #30 tab Continue amLODIPine [Norvasc] 5 mg PO DAILY 30 Days #30 tab Discontinued ARIPiprazole [Abilify] 5 mg PO DAILY tab Sertraline [Zoloft] 50 mg PO HS tab Naproxen [Naprosyn] 500 mg PO TID PRN tab PRN Reason: Headache Acetaminophen Tab [Tylenol] 650 mg PO Q6HR PRN tab PRN Reason: Mild Pain Or Fever > 100.5 OLANZapine [ZyPREXA] 5 mg PO QID PRN tab PRN Reason: Agitation Discharge Medication List ARIPiprazole [Abilify] 7.5 mg PO HS 30 Days #15 tab 01/16/24 [Rx] Acetaminophen Tab [Tylenol Tab] 500 mg PO TID PRN 30 Days #90 tablet 01/16/24 [Rx] Albuterol Inhaler [Ventolin Hfa Inhaler] 2 puff INHALATION RT-QID PRN 30 Days #1 each 01/16/24 [Rx] Clotrimazole Cream [Lotrimin Cream] 1 applic TOPICAL BID 30 Days #1 each 01/16/24 [Rx] Naproxen [Naprosyn] 500 mg PO TID PRN 30 Days #180 tab 01/16/24 [Rx] Nicotine 14Mg/24Hr Patch [Habitrol] 1 patch TRANSDERM DAILY 14 Days #14 patch 01/16/24 [Rx] Sertraline [Zoloft] 50 mg PO DAILY 30 Days #30 tab 01/16/24 [Rx] amLODIPine [Norvasc] 5 mg PO DAILY 30 Days #30 tab 01/16/24 [Rx] traZODone HCL [Desyrel] 100 mg PO HS 30 Days #30 tab 01/16/24 [Rx] Follow up Appointment(s)/Referral(s): [facility] [Outside] - 01/20/24 11:00 am (with Mayra ) [facility] [NON-STAFF] - 1 Week Patient Instructions/Handouts: How to Stop Smoking (DC), Depression (DC), Schizoaffective Disorder (DC) Activity/Diet/Wound Care/Special Instructions: Avoid the use of street drugs and alcohol. Take all medications as prescribed. When you are in need of refills on your medications, please contact your medical provider and/or outpatient psychiatrist/provider to have this done. Please go to your scheduled outpatient appointment for aftercare treatment. If symptoms return or become worse, call the crisis line at and/or go to the nearest emergency room for evaluation. National Suicide Hotline 988 Discharge Disposition: HOME SELF-CARE
== END 2024-01-16 12:05 | disposition home or self-care (01) | DRG 885 ==
LOC: 3MHU 15:03
PROVIDERS: ADMIT Psychiatry & Neurology Psychiatry; ATTEND Psychiatry & Neurology Psychiatry
DX: F25.1 Schizoaffective disorder, depressive type (principal); R45.851 Suicidal ideations; Z59.00 Homelessness unspecified; I10 Essential (primary) hypertension; F12.10 Cannabis abuse, uncomplicated; T50.916A Underdosing of multiple unspecified drugs, medicaments and biological substances, initial encounter; Z91.128 Patient's intentional underdosing of medication regimen for other reason; F17.210 Nicotine dependence, cigarettes, uncomplicated; Z79.899 Other long term (current) drug therapy
CPT/HCPCS: 80061; 80076; 83036

== ENCOUNTER 2024-03-05 14:59 | Emergency (ER) | payer MEDICARE, OTHER ==
[2024-03-05 15:13] VITALS: RESP 18
[2024-03-05] MEDS: SODIUM CHLORIDE 0.9% 1,000 ML IV STA (15:43)
--- NOTE | 2024-03-05 15:48 | ED ---
General Adult HPI - General Chief complaint: Dizziness Stated complaint: Dizziness Time Seen by Provider: 03/05/24 15:25 Source: patient, RN notes reviewed, old records reviewed Mode of arrival: ambulatory Limitations: no limitations - History of Present Illness Initial comments: Patient is a 38-year-old male who presents emergency department complaining of dizziness, hypertension, headache. States this has happened previously. Is somewhat noncompliant with his blood pressure medications. States he has not taken them over the last few days. Blood pressure yesterday was in the 180s systolic. Currently is within acceptable limits. He denies any chest pain. Endorses some generalized bodyaches, mild headache. Endorses generalized w eakness as well. Denies nausea or vomiting or abdominal pain. Presents for further evaluation at this time. No fevers or chills. Does have a psychiatric history. - Related Data Home Medications Medication Instructions Recorded Confirmed ARIPiprazole [Abilify] 10 mg PO HS 03/05/24 03/05/24 Albuterol Inhaler [Ventolin Hfa 1 puff INHALATION RT-Q6H PRN 03/05/24 03/05/24 Inhaler] Sertraline [Zoloft] 100 mg PO DAILY 03/05/24 03/05/24 Previous Rx's Medication Instructions Recorded Acetaminophen Tab [Tylenol Tab] 500 mg PO TID PRN 30 Days #90 01/16/24 tablet Clotrimazole Cream [Lotrimin Cream] 1 applic TOPICAL BID 30 Days #1 01/16/24 each Naproxen [Naprosyn] 500 mg PO TID PRN 30 Days #180 tab 01/16/24 amLODIPine [Norvasc] 5 mg PO DAILY 30 Days #30 tab 01/16/24 traZODone HCL [Desyrel] 100 mg PO HS 30 Days #30 tab 01/16/24 Allergies Allergy/AdvReac Type Severity Reaction Status Date / Time No Known Allergies Allergy Verified 03/05/24 16:36 Review of Systems ROS Statement: Those systems with pertinent positive or pertinent negative responses have been documented in the HPI. Review of Systems: CONST: Denies fever EYES: Denies blurry vision ENT: Denies nasal congestion C/V: Denies Chest pain RESP: Denies shortness of breath GI: Denies abdominal pain : Denies dysuria SKIN: Denies rash. MSK: Denies joint pain. NEURO: Endorses headache, generalized weakness ROS Other: All systems not noted in ROS Statement are negative. Past Medical History Past Medical History: Hypertension History of Any Multi-Drug Resistant Organisms: None Reported Past Surgical History: Orthopedic Surgery Additional Past Surgical History / Comment(s): eye surgery, surgey on achilles Past Anesthesia/Blood Transfusion Reactions: No Reported Reaction Past Psychological History: Anxiety, Bipolar, Depression, Schizophrenia Smoking Status: Current every day smoker Past Alcohol Use History: Daily Past Drug Use History: Marijuana - Past Family History Mother History Unknown: Yes General Exam - General Exam Comments Initial Comments: General: Appears in no acute distress. HEAD: Normal with no signs of head trauma. EYES: PERRLA, EOMI, conjunctiva normal, no discharge. ENT: Hearing grossly intact, normal oropharynx. RESPIRATORY: Clear breath sounds bilaterally. No wheezes, rales, or rhonchi. C/V: Regular rate and rhythm. S1 and S2 auscultated, no edema, peripheral pulses 2+ and intact throughout ABD: Abd is soft, nontender, nondistended EXT: Normal range of motion, no obvious deformity SKIN: No rashes or lesions observed on exposed skin. NEURO: Alert and oriented x 4. No focal deficits. Limitations: no limitations Course Vital Signs 03/05/24 03/05/24 03/05/24 15:09 15:28 18:46 Temperature 98.1 F 98.6 F Pulse Rate 84 82 83 Respiratory 18 18 18 Rate Blood Pressure 141/84 130/83 123/87 O2 Sat by Pulse 98 98 98 Oximetry Medical Decision Making - Medical Decision Making Was pt. sent in by a medical professional or institution (, PA, FBI FIELD AGENT, urgent care, hospital, or penitentiary...) When possible be specific @ -No Did you speak to anyone other than the patient for history (EMS, parent, family, police, friend...)? What history was obtained from this source @ -No Did you review nursing and triage notes (agree or disagree)? Why? @ -I reviewed and agree with nursing and triage notes Were old charts reviewed (outside hosp., previous admission, EMS record, old EKG, old radiological studies, urgent care reports/EKG's, penitentiary records)? Report findings @ -Reviewed charts from December 2023 including EKG which is similar to today's EKG. Differential Diagnosis (chest pain, altered mental status, abdominal pain women, abdominal pain men, vaginal bleeding, weakness, fever, dyspnea, syncope, headache, dizziness, GI bleed, back pain, seizure, CVA, palpatations, mental health, musculoskeletal)? @ -COVID, flu, RSV, medication noncompliance for hypertension, this list is not all inclusive. EKG interpreted by me (3pts min.). @ -As above X-rays interpreted by me (1pt min.). @ -Chest x-ray reveals no obvious acute cardiopulmonary process. CT interpreted by me (1pt min.). @ -None done U/S interpreted by me (1pt. min.). @ -None done What testing was considered but not performed or refused? (CT, X-rays, U/S, labs)? Why? @ -None What meds were considered but not given or refused? Why? @ -None Did you discuss the management of the patient with other professionals (professionals i.e. , PA, FBI FIELD AGENT, lab, RT, psych nurse, rn social services, in flight crew member, teacher, chief security officer, family caseworker)? Give summary @ -No Was smoking cessation discussed for >3mins.? @ -No Was critical care preformed (if so, how long)? @ -No Were there social determinants of health that impacted care today? How? (Homelessness, low income, unemployed, alcoholism, drug addiction, transportation, low edu. Level, literacy, decrease access to med. care, prison, rehab)? @ -No Was there de-escalation of care discussed even if they declined (Discuss DNR or withdrawal of care, Hospice)? DNR status @ -No What co-morbidities impacted this encounter? (DM, HTN, Smoking, COPD, CAD, Cancer, CVA, ARF, Chemo, Hep., AIDS, mental health diagnosis, sleep apnea, morbid obesity)? @ -Hypertension Was patient admitted / discharged? Hospital course, mention meds given and route, prescriptions, significant lab abnormalities, going to OR and other pertinent info. @ -Based on the patient's presentation and physical exam, patient presents em ergency department complaining of migraine, dizziness, weakness, hypertension. Vital signs within acceptable limits. Patient will be administered a migraine cocktail and we will obtain basic labs. EKG does show some chronic findings however we will obtain a troponin as well. Patient was in agreement this plan. Currently vital signs are within acceptable limits including blood pressure 130/83. At home, patient apparently had systolic blood pressures over 180. EKG shows chronic findings with some nonspecific ST segment and T wave abnormalities.Chest x-ray shows no obvious acute process. Laboratory studies remarkable for undetectable troponin. Remainder the labs all within acceptable limits. Viral swabs negative. On reevaluation, patient is feeling proved. Patient will receive a dose of IV steroids in addition to a dose of his normal Norvasc. Strict return precautions discussed. Did awake overnight counselor him in taking his antihypertensives every day. He was in agreement this plan. Does not require refill on his blood pressure meds per patient. I instructed the patient to follow up with their PCP in the next 1-3 days. I explained that the patient should return to the emergency department if they experience any worsening symptoms. Strict return precautions were discussed with the patient. The patient expressed understanding of these instructions. I answered all questions that the patient had. The patient was discharged home in good condition with their prescriptions and follow up information. Undiagnosed new problem with uncertain prognosis? @ -No Drug Therapy requiring intensive monitoring for toxicity (Heparin, Nitro, Insulin, Cardizem)? @ -No Were any procedures done? @ -No Diagnosis/symptom? @ -Headache, hypertension, medication noncompliance Acute, or Chronic, or Acute on Chronic? @ -Acute Uncomplicated (without systemic symptoms) or Complicated (systemic symptoms)? @ -Uncomplicated Side effects of treatment? @ -None Exacerbation, Progression, or Severe Exacerbation] @ -No Poses a threat to life or bodily function? @ -Unlikely at this time - Lab Data Result diagrams: 03/05/24 15:37 03/05/24 15:37 Lab Results 03/05/24 03/05/24 03/05/24 Range/Units 15:30 15:37 15:37 WBC 3.2 L (3.8-10.6) k/uL RBC 4.47 (4.30-5.90) m/uL Hgb 14.5 (13.0-17.5) gm/dL Hct 44.2 (39.0-53.0) % MCV 98.9 (80.0-100.0) fL MCH 32.4 (25.0-35.0) pg MCHC 32.8 (31.0-37.0) g/dL RDW 12.4 (11.5-15.5) % Plt Count 198 (150-450) k/uL MPV 7.2 Neutrophils % 48 % Lymphocytes % 41 % Monocytes % 5 % Eosinophils % 3 % Basophils % 1 % Neutrophils # 1.5 (1.3-7.7) k/uL Lymphocytes # 1.3 (1.0-4.8) k/uL Monocytes # 0.2 (0-1.0) k/uL Eosinophils # 0.1 (0-0.7) k/uL Basophils # 0.0 (0-0.2) k/uL Sodium 138 (137-145) mmol/L Potassium 3.8 (3.5-5.1) mmol/L Chloride 103 (98-107) mmol/L Carbon Dioxide 23 (22-30) mmol/L Anion Gap 12 mmol/L BUN 11 (9-20) mg/dL Creatinine 0.99 (0.66-1.25) mg/dL Est GFR (CKD-EPI)AfAm >90 (>60 ml/min/1.73 sqM) Est GFR (CKD-EPI)NonAf >90 (>60 ml/min/1.73 sqM) Glucose 130 H (74-99) mg/dL Calcium 9.7 (8.4-10.2) mg/dL Magnesium 2.1 (1.6-2.3) mg/dL Total Bilirubin 0.6 (0.2-1.3) mg/dL AST 22 (17-59) U/L ALT 14 (4-49) U/L Alkaline Phosphatase 40 (38-126) U/L Troponin I (0.000-0.034) ng/mL Total Protein 7.1 (6.3-8.2) g/dL Albumin 4.2 (3.5-5.0) g/dL Influenza Type A (PCR) Not Detected (Not Detectd) Influenza Type B (PCR) Not Detected (Not Detectd) RSV (PCR) Not Detected (Not Detectd) SARS-CoV-2 (PCR) Not Detected (Not Detectd) 03/05/24 Range/Units 15:37 WBC (3.8-10.6) k/uL RBC (4.30-5.90) m/uL Hgb (13.0-17.5) gm/dL Hct (39.0-53.0) % MCV (80.0-100.0) fL MCH (25.0-35.0) pg MCHC (31.0-37.0) g/dL RDW (11.5-15.5) % Plt Count (150-450) k/uL MPV Neutrophils % % Lymphocytes % % Monocytes % % Eosinophils % % Basophils % % Neutrophils # (1.3-7.7) k/uL Lymphocytes # (1.0-4.8) k/uL Monocytes # (0-1.0) k/uL Eosinophils # (0-0.7) k/uL Basophils # (0-0.2) k/uL Sodium (137-145) mmol/L Potassium (3.5-5.1) mmol/L Chloride (98-107) mmol/L Carbon Dioxide (22-30) mmol/L Anion Gap mmol/L BUN (9-20) mg/dL Creatinine (0.66-1.25) mg/dL Est GFR (CKD-EPI)AfAm (>60 ml/min/1.73 sqM) Est GFR (CKD-EPI)NonAf (>60 ml/min/1.73 sqM) Glucose (74-99) mg/dL Calcium (8.4-10.2) mg/dL Magnesium (1.6-2.3) mg/dL Total Bilirubin (0.2-1.3) mg/dL AST (17-59) U/L ALT (4-49) U/L Alkaline Phosphatase (38-126) U/L Troponin I <0.012 (0.000-0.034) ng/mL Total Protein (6.3-8.2) g/dL Albumin (3.5-5.0) g/dL Influenza Type A (PCR) (Not Detectd) Influenza Type B (PCR) (Not Detectd) RSV (PCR) (Not Detectd) SARS-CoV-2 (PCR) (Not Detectd) - EKG Data -: EKG Interpreted by Me EKG Comments: 12-lead Electrocardiogram Interpretation Note EKG was reviewed and interpreted by myself. 12-lead ECG performed at 1520 is interpreted by me as revealing normal sinus rhythm at a rate of 76 beats per minute. Dexter is normal. MT interval is 125 ms, QRS durations 92 ms, QTc is 4 2019 ms. Patient does have J-point elevation suggestive of early repolarization as well as some nonspecific T wave abnormalities. This is all seen in previous EKG from December 2023 and is unchanged from that time. Patient did have a ca rdiology workup at that time and they reviewed this EKG.. There were no ST or T wave abnormalities to suggest myocardial ischemia or injury. R wave progression across the precordium was satisfactory. By my interpretation this EKG is non- diagnostic for acute ischemia. Disposition Clinical Impression: Headache, Noncompliance with medication regimen, Hypertension Disposition: HOME SELF-CARE Condition: Good Instructions (If sedation given, give patient instructions): Acute Headache (ED) Additional Instructions: Follow-up with your PCP in the next 1 to 3 days. He can follow-up with the resident clinic provided if you want a follow-up sooner. Return if worsening symptoms. Be sure to take your antihypertensive medication, Norvasc. Return to the emergency department if worsening symptoms. Is patient prescribed a controlled substance at d/c from ED?: No Referrals: None,Stated [Primary Care Provider] - 1-2 days Trudy Marie MD [STAFF PHYSICIAN] - 1-2 days Time of Disposition: 18:00
[2024-03-05 15:52] LABS: Basophils % (A) 1 %; Eosinophils # (A) 0.1 k/uL (0-0.7); Eosinophils % (A) 3 %; HCT 44.2 % (39.0-53.0); HGB 14.5 gm/dL (13.0-17.5); Lymphocytes # (A) 1.3 k/uL (1.0-4.8); Lymphocytes % (A) 41 %; MCH 32.4 pg (25.0-35.0); MCHC 32.8 g/dL (31.0-37.0); MCV 98.9 fL (80.0-100.0); Mean Platelet Volume 7.2; Monocytes # (A) 0.2 k/uL (0-1.0); Monocytes % (A) 5 %; Neutrophils # (A) 1.5 k/uL (1.3-7.7); Neutrophils % (A) 48 %; Platelet Count 198 k/uL (150-450); RBC 4.47 m/uL (4.30-5.90); RDW 12.4 % (11.5-15.5); WBC 3.2 k/uL (3.8-10.6)
[2024-03-05] MEDS: METOCLOPRAMIDE 5 MG/ML 2 ML VIAL IVP STA (15:52)
[2024-03-05] MEDS: diphenhydrAMINE 50 MG/ML 1 ML VIAL IVP STA (15:54)
[2024-03-05] MEDS: KETOROLAC 15 MG/ML 1 ML VIAL IVP STA (15:54)
[2024-03-05 16:02] LABS: ALT 14 U/L (4-49); AST 22 U/L (17-59); African American GFR (CKD) >90 (>60 ml/min/1.73 sqM); Albumin 4.2 g/dL (3.5-5.0); Alkaline Phosphatase 40 U/L (38-126); Anion Gap 12 mmol/L; Blood Urea Nitrogen 11 mg/dL (9-20); Calcium 9.7 mg/dL (8.4-10.2); Carbon Dioxide 23 mmol/L (22-30); Chloride 103 mmol/L (98-107); Glucose 130 mg/dL (74-99); Magnesium 2.1 mg/dL (1.6-2.3); Non-African American GFR(CKD) >90 (>60 ml/min/1.73 sqM); Potassium 3.8 mmol/L (3.5-5.1); Sodium 138 mmol/L (137-145); Total Bilirubin 0.6 mg/dL (0.2-1.3); Total Protein 7.1 g/dL (6.3-8.2)
--- NOTE | 2024-03-05 16:13 | XR ---
EXAMINATION TYPE: XR chest 2V DATE OF EXAM: 03/05/2024 4:07 PM COMPARISON: Chest x-ray January 09, 2024 CLINICAL INDICATION: Male, 38 years old with history of dizzy, TECHNIQUE: Frontal and lateral views of the chest are obtained. FINDINGS: There is no focal air space opacity, pleural effusion, or pneumothorax seen. The cardiac silhouette size is enlarged. The osseous structures are intact. IMPRESSION: Cardiomegaly without acute pulmonary process. [facility], , 03/05/2024 4:10 PM
[2024-03-05 16:28] LABS: Influenza A Not Detected (Not Detectd); Influenza B Not Detected (Not Detectd); RSV Not Detected (Not Detectd)
[2024-03-05] MEDS: amLODIPine 5 MG TAB PO STA (18:42)
[2024-03-05] MEDS: methylPREDNISolone SOD SUCCI 40 MG/ML 1 ML VIAL IV STA (18:42)
[2024-03-05 18:47] VITALS: BP 123/87; PULSE 83; TEMP 98.6
== END 2024-03-05 18:47 | disposition home or self-care (01) ==
LOC: EC 14:59
DX: R51.9 Headache, unspecified (principal); I10 Essential (primary) hypertension; Z91.148 Patient's other noncompliance with medication regimen for other reason; F17.200 Nicotine dependence, unspecified, uncomplicated
CPT/HCPCS: 36415; 93005; 80053; 83735; 84484; 85025; 87636; 71046; 99284; 96374; 96375 ×3; 96361 ×2; J1200; J2765; J1885; J2919

== ENCOUNTER 2024-04-18 12:23 | Emergency (ER) | payer MEDICARE, OTHER ==
--- NOTE | 2024-04-18 12:44 | ED ---
General Adult HPI - General Chief complaint: Syncope Stated complaint: dizzy, headache Time Seen by Provider: 04/18/24 12:31 Source: patient, RN notes reviewed, old records reviewed Mode of arrival: ambulatory Limitations: no limitations - History of Present Illness Initial comments: 39-year-old male presents for evaluation of headache, lightheadedness, fall with head injury. Patient symptoms began this morning and he does admit to heavy alcohol consumption last night. He denies central chest pain. No cough. No abdominal pain. No vomiting. - Related Data Home Medications Medication Instructions Recorded Confirmed ARIPiprazole [Abilify] 10 mg PO HS 03/05/24 03/05/24 Albuterol Inhaler [Ventolin Hfa 1 puff INHALATION RT-Q6H PRN 03/05/24 03/05/24 Inhaler] Sertraline [Zoloft] 100 mg PO DAILY 03/05/24 03/05/24 Previous Rx's Medication Instructions Recorded Acetaminophen Tab [Tylenol Tab] 500 mg PO TID PRN 30 Days #90 01/16/24 tablet Clotrimazole Cream [Lotrimin Cream] 1 applic TOPICAL BID 30 Days #1 01/16/24 each Naproxen [Naprosyn] 500 mg PO TID PRN 30 Days #180 tab 01/16/24 amLODIPine [Norvasc] 5 mg PO DAILY 30 Days #30 tab 01/16/24 traZODone HCL [Desyrel] 100 mg PO HS 30 Days #30 tab 01/16/24 Allergies Allergy/AdvReac Type Severity Reaction Status Date / Time No Known Allergies Allergy Verified 04/18/24 12:30 Review of Systems ROS Statement: Those systems with pertinent positive or pertinent negative responses have been documented in the HPI. ROS Other: All systems not noted in ROS Statement are negative. Past Medical History Past Medical History: Hypertension History of Any Multi-Drug Resistant Organisms: None Reported Past Surgical History: Orthopedic Surgery Additional Past Surgical History / Comment(s): eye surgery, surgey on achilles Past Anesthesia/Blood Transfusion Reactions: No Reported Reaction Past Psychological History: Anxiety, Bipolar, Depression, Schizophrenia Smoking Status: Current every day smoker Past Alcohol Use History: Daily Past Drug Use History: Marijuana - Past Family History Mother History Unknown: Yes General Exam Limitations: no limitations General appearance: alert, in no apparent distress Head exam: Present: atraumatic, normocephalic Eye exam: Present: normal appearance, PERRL ENT exam: Present: mucous membranes dry Neck exam: Present: normal inspection. Absent: tenderness, meningismus Respiratory exam: Present: normal lung sounds bilaterally. Absent: respiratory distress, wheezes Cardiovascular Exam: Present: regular rate, normal rhythm GI/Abdominal exam: Present: soft. Absent: distended, tenderness, guarding Extremities exam: Present: normal inspection, normal capillary refill Neurological exam: Present: alert, oriented X3, CN II-XII intact, normal gait. Absent: motor sensory deficit Psychiatric exam: Present: normal affect, normal mood Skin exam: Present: warm, dry, intact Course Vital Signs 04/18/24 12:26 Temperature 98.7 F Pulse Rate 87 Respiratory 17 Rate Blood Pressure 144/97 O2 Sat by Pulse 98 Oximetry Medical Decision Making - Medical Decision Making Was pt. sent in by a medical professional or institution (Dr. PA, SCRAPER HAND, urgent care, hospital, or fci...) When possible be specific @ -No Did you speak to anyone other than the patient for history (EMS, parent, family, police, friend...)? What history was obtained from this source @ -No Did you review nursing and triage notes (agree or disagree)? Why? @ -I reviewed and agree with nursing and triage notes Were old charts reviewed (outside hosp., previous admission, EMS record, old EKG, old radiological studies, urgent care reports/EKG's, fci records)? Report findings @ -No old charts were reviewed Differential Weakness: Hypoglycemia, shock, sepsis, hyponatremia, anemia, infection, ND, ETOH, adverse medicine reaction, overdose, stroke, this is not meant to be an all-inclusive list. EKG interpreted by me (3pts min.). @Sinus rhythm LVH, rate of 84, CA interval 135, QRS duration 97, QTc 430 patient has a T wave inversion inferiorly X-rays interpreted by me (1pt min.). @ -[Chest x-ray negative for acute cardiopulmonary findings. CT interpreted by me (1pt min.). @ -Brain negative for intracranial hemorrhage or mass effect U/S interpreted by me (1pt. min.). @ -[None done What testing was considered but not performed or refused? (CT, X-rays, U/S, labs)? Why? @ -None What meds were considered but not given or refused? Why? @ -None Did you discuss the management of the patient with other professionals (prof mejía i.e. , PA, SCRAPER HAND, lab, RT, psych nurse, vp digital marketing social media and crm, home health physical therapist, teacher, armored vehicle officer, geriatric case manager)? Give summary @ -No Was smoking cessation discussed for >3mins.? @ -No Was critical care preformed (if so, how long)? @ -No Were there social determinants of health that impacted care today? How? (Homelessness, low income, unemployed, alcoholism, drug addiction, transportation, low edu. Level, literacy, decrease access to med. care, group home, rehab)? @ -No Was there de-escalation of care discussed even if they declined (Discuss DNR or withdrawal of care, Hospice)? DNR status @ -No What co-morbidities impacted this encounter? (DM, HTN, Smoking, COPD, CAD, Cancer, CVA, ARF, Chemo, Hep., AIDS, mental health diagnosis, sleep apnea, morbid obesity)? @ -None Was patient admitted / discharged? Hospital course, mention meds given and route, prescriptions, significant lab abnormalities, going to OR and other pertinent info. @ -[39-year-old male presenting with lightheadedness, fall after drinking alcohol. Patient is sober with stable vitals at the time my evaluation. Head CT is performed which is negative for intracranial hemorrhage or mass effect. Patient is in sinus rhythm. He has a normal CBC, normal CMP, negative troponin. He is given IV fluid and Toradol. He will maintain oral hydration. Return he should follow-up with his primary care provider. Return with any worsening or changing symptoms. Undiagnosed new problem with uncertain prognosis? @ -No Drug Therapy requiring intensive monitoring for toxicity (Heparin, Nitro, Insulin, Cardizem)? @ -No Were any procedures done? @ -No Diagnosis/symptom? @Dehydration, near syncope Acute, or Chronic, or Acute on Chronic? @Acute Uncomplicated (without systemic symptoms) or Complicated (systemic symptoms)? @ -Default Side effects of treatment? @ -No Exacerbation, Progression, or Severe Exacerbation? @ -No Poses a threat to life or bodily function? How? (Chest pain, USA, ND, pneumonia, PE, COPD, DKA, ARF, appy, cholecystitis, CVA, Diverticulitis, Homicidal, Suicidal, threat to staff... and all critical care pts) @ low-Risk at this time - Lab Data Result diagrams: 04/18/24 12:59 04/18/24 12:59 Lab Results 04/18/24 04/18/24 04/18/24 Range/Units 12:59 12:59 12:59 WBC 4.7 (3.8-10.6) k/uL RBC 4.02 L (4.30-5.90) m/uL Hgb 13.0 (13.0-17.5) gm/dL Hct 39.5 (39.0-53.0) % MCV 98.2 (80.0-100.0) fL MCH 32.4 (25.0-35.0) pg MCHC 33.0 (31.0-37.0) g/dL RDW 12.9 (11.5-15.5) % Plt Count 224 (150-450) k/uL MPV 7.8 Neutrophils % 63 % Lymphocytes % 28 % Monocytes % 5 % Eosinophils % 1 % Basophils % 1 % Neutrophils # 3.0 (1.3-7.7) k/uL Lymphocytes # 1.3 (1.0-4.8) k/uL Monocytes # 0.2 (0-1.0) k/uL Eosinophils # 0.1 (0-0.7) k/uL Basophils # 0.0 (0-0.2) k/uL PT 11.5 (10.0-12.5) sec INR 1.0 (<1.2) APTT 23.4 (22.0-30.0) sec Sodium 137 (137-145) mmol/L Potassium 3.8 (3.5-5.1) mmol/L Chloride 103 (98-107) mmol/L Carbon Dioxide 23 (22-30) mmol/L Anion Gap 11 mmol/L BUN 17 (9-20) mg/dL Creatinine 0.97 (0.66-1.25) mg/dL Est GFR (CKD-EPI)AfAm >90 (>60 ml/min/1.73 sqM) Est GFR (CKD-EPI)NonAf >90 (>60 ml/min/1.73 sqM) Glucose 83 (74-99) mg/dL Calcium 9.5 (8.4-10.2) mg/dL Magnesium 2.1 (1.6-2.3) mg/dL Total Bilirubin 0.9 (0.2-1.3) mg/dL AST 21 (17-59) U/L ALT 17 (4-49) U/L Alkaline Phosphatase 45 (38-126) U/L Troponin I (0.000-0.034) ng/mL Total Protein 7.6 (6.3-8.2) g/dL Albumin 4.4 (3.5-5.0) g/dL 04/18/24 Range/Units 12:59 WBC (3.8-10.6) k/uL RBC (4.30-5.90) m/uL Hgb (13.0-17.5) gm/dL Hct (39.0-53.0) % MCV (80.0-100.0) fL MCH (25.0-35.0) pg MCHC (31.0-37.0) g/dL RDW (11.5-15.5) % Plt Count (150-450) k/uL MPV Neutrophils % % Lymphocytes % % Monocytes % % Eosinophils % % Basophils % % Neutrophils # (1.3-7.7) k/uL Lymphocytes # (1.0-4.8) k/uL Monocytes # (0-1.0) k/uL Eosinophils # (0-0.7) k/uL Basophils # (0-0.2) k/uL PT (10.0-12.5) sec INR (<1.2) APTT (22.0-30.0) sec Sodium (137-145) mmol/L Potassium (3.5-5.1) mmol/L Chloride (98-107) mmol/L Carbon Dioxide (22-30) mmol/L Anion Gap mmol/L BUN (9-20) mg/dL Creatinine (0.66-1.25) mg/dL Est GFR (CKD-EPI)AfAm (>60 ml/min/1.73 sqM) Est GFR (CKD-EPI)NonAf (>60 ml/min/1.73 sqM) Glucose (74-99) mg/dL Calcium (8.4-10.2) mg/dL Magnesium (1.6-2.3) mg/dL Total Bilirubin (0.2-1.3) mg/dL AST (17-59) U/L ALT (4-49) U/L Alkaline Phosphatase (38-126) U/L Troponin I <0.012 (0.000-0.034) ng/mL Total Protein (6.3-8.2) g/dL Albumin (3.5-5.0) g/dL Disposition Clinical Impression: Headache, Dizziness, Dehydration Disposition: HOME SELF-CARE Condition: Fair Instructions (If sedation given, give patient instructions): Dehydration (ED) Additional Instructions: Drink plenty of fluids, avoid alcohol consumption. Is patient prescribed a controlled substance at d/c from ED?: No Referrals: None,Stated [Primary Care Provider] - 1-2 days Time of Disposition: 13:49
[2024-04-18] MEDS: SODIUM CHLORIDE 0.9% 1,000 ML IV STA (13:07)
[2024-04-18 13:15] LABS: Basophils % (A) 1 %; Eosinophils # (A) 0.1 k/uL (0-0.7); Eosinophils % (A) 1 %; HCT 39.5 % (39.0-53.0); Lymphocytes # (A) 1.3 k/uL (1.0-4.8); Lymphocytes % (A) 28 %; MCH 32.4 pg (25.0-35.0); MCV 98.2 fL (80.0-100.0); Mean Platelet Volume 7.8; Monocytes # (A) 0.2 k/uL (0-1.0); Monocytes % (A) 5 %; Neutrophils % (A) 63 %; Platelet Count 224 k/uL (150-450); RBC 4.02 m/uL (4.30-5.90); RDW 12.9 % (11.5-15.5); WBC 4.7 k/uL (3.8-10.6)
[2024-04-18 13:25] LABS: Partial Thromboplastin Time 23.4 sec (22.0-30.0); Prothrombin Time 11.5 sec (10.0-12.5)
--- NOTE | 2024-04-18 13:33 | CT ---
EXAMINATION TYPE: CT brain wo con DATE OF EXAM: 04/18/2024 COMPARISON: 01/01/2024 CLINICAL INDICATION: Male, 39 years old with history of Fall Head injury; PHH, Dizziness, syncope, fa ll CT DLP: 1123.4 mGycm Automated exposure control for dose reduction was used. Findings: The ventricles, basal cisterns and sulci over the convexities are within normal limits and there is n o mass effect or shift of midline structures. No abnormal density is seen throughout the brain parenchyma and there is no acute intra or extra-axia l hemorrhage. The posterior fossa including the brainstem, fourth ventricle and cerebellar pontine angles appear no rmal. Intraorbital contents appear normal and symmetric. There are mild chronic laboratory changes in the maxillary sinuses. The mastoid air cells are well ae rated. The calvarium is intact. IMPRESSION: There is no acute bleed or mass effect. [facility], , 04/18/2024 1:31 PM
[2024-04-18 13:34] LABS: ALT 17 U/L (4-49); AST 21 U/L (17-59); African American GFR (CKD) >90 (>60 ml/min/1.73 sqM); Albumin 4.4 g/dL (3.5-5.0); Alkaline Phosphatase 45 U/L (38-126); Anion Gap 11 mmol/L; Blood Urea Nitrogen 17 mg/dL (9-20); Calcium 9.5 mg/dL (8.4-10.2); Carbon Dioxide 23 mmol/L (22-30); Chloride 103 mmol/L (98-107); Glucose 83 mg/dL (74-99); Magnesium 2.1 mg/dL (1.6-2.3); Non-African American GFR(CKD) >90 (>60 ml/min/1.73 sqM); Potassium 3.8 mmol/L (3.5-5.1); Sodium 137 mmol/L (137-145); Total Bilirubin 0.9 mg/dL (0.2-1.3); Total Protein 7.6 g/dL (6.3-8.2)
--- NOTE | 2024-04-18 13:39 | XR ---
Chest, 2 view. CLINICAL INDICATION: Male, 39 years old with history of syncope COMPARISON: 03/05/2024 TECHNIQUE: PA and lateral views the chest are obtained. FINDINGS: The lungs are clear and there is no consolidative or interstitial opacity. There is no pleural effusion or pneumothorax. The heart, pulmonary vasculature, mediastinum and alexander appear normal. The osseous structures are intact. IMPRESSION: No significant abnormality seen. No acute cardiopulmonary disease. [facility], , 04/18/2024 1:37 PM
[2024-04-18] MEDS: KETOROLAC 15 MG/ML 1 ML VIAL IVP STA (13:56)
[2024-04-18 14:12] VITALS: BP 159/95; PULSE 74; RESP 18; TEMP 98.3
== END 2024-04-18 14:12 | disposition home or self-care (01) ==
LOC: EC 12:23
DX: E86.0 Dehydration (principal); R42 Dizziness and giddiness; R51.9 Headache, unspecified; F17.200 Nicotine dependence, unspecified, uncomplicated
CPT/HCPCS: 36415; 93005; 80053; 83735; 84484; 85025; 85610; 85730; 71046; 70450; 99284; 96374; 96361; J1885

== ENCOUNTER 2024-07-30 14:44 | Emergency (ER) | payer MEDICARE, OTHER ==
[2024-07-30 14:49] VITALS: RESP 18
[2024-07-30] MEDS: CEPHALEXIN 500 MG CAP PO STA (15:15)
[2024-07-30] MEDS: ACETAMINOPHEN TAB 500 MG TAB PO STA (15:15)
[2024-07-30] MEDS: KETOROLAC 15 MG/ML 1 ML VIAL IM STA (15:15)
[2024-07-30] MEDS: DIPH,PERTUS(ACELL)TETVAC-LF 0.5 ML VIAL IM ONE (15:16)
[2024-07-30] MEDS: cefTRIAXone 1,000 MG VIAL (IM USE) IM STA (15:19)
--- NOTE | 2024-07-30 15:22 | ED ---
General Adult HPI - General Chief complaint: Extremity Injury, Lower Stated complaint: L Leg laceration/swelling Time Seen by Provider: 07/30/24 14:57 Source: patient, RN notes reviewed Mode of arrival: ambulatory Limitations: no limitations - History of Present Illness Initial comments: This is a 39-year-old male with history including hypertension and daily EtOH use presenting for LLE laceration occurring 3 days ago. Patient states he accidentally cut his left foot on a bike pedal with subsequent swelling and pain, radiating proximally since yesterday. Patient states tetanus vaccination is not up-to-date. Patient states pain worsens with ambulation and weightbearing. Denies fever, chills, fatigue. Onset/Timin -: days(s) Location: left, lower extremity Radiation: proximal Severity scale (1-10): 7 Consistency: constant Worsens with: movement, other (Weightbearing on bare foot) Associated Symptoms: denies other symptoms Treatments Prior to Arrival: none - Related Data Home Medications Medication Instructions Recorded Confirmed ARIPiprazole [Abilify] 10 mg PO HS 03/05/24 03/05/24 Albuterol Inhaler [Ventolin Hfa 1 puff INHALATION RT-Q6H PRN 03/05/24 03/05/24 Inhaler] Sertraline [Zoloft] 100 mg PO DAILY 03/05/24 03/05/24 Previous Rx's Medication Instructions Recorded Acetaminophen Tab [Tylenol Tab] 500 mg PO TID PRN 30 Days #90 01/16/24 tablet Clotrimazole Cream [Lotrimin Cream] 1 applic TOPICAL BID 30 Days #1 01/16/24 each Naproxen [Naprosyn] 500 mg PO TID PRN 30 Days #180 tab 01/16/24 amLODIPine [Norvasc] 5 mg PO DAILY 30 Days #30 tab 01/16/24 traZODone HCL [Desyrel] 100 mg PO HS 30 Days #30 tab 01/16/24 Cephalexin [Keflex] 500 mg PO Q6HR 1 Days #28 cap 07/30/24 Ibuprofen [Motrin] 800 mg PO Q8HR PRN #30 tab 07/30/24 Mupirocin 2% Oint [Bactroban 2% 1 applic TOPICAL TID #22 gm 07/30/24 Oint] Sulfamethox-Tmp 800-160Mg [Bactrim 1 tab PO Q12HR #14 tab 07/30/24 DS 800-160 mg] Allergies Allergy/AdvReac Type Severity Reaction Status Date / Time No Known Allergies Allergy Verified 07/30/24 14:49 Review of Systems ROS Statement: Those systems with pertinent positive or pertinent negative responses have been documented in the HPI. ROS Other: All systems not noted in ROS Statement are negative. Past Medical History Past Medical History: Hypertension History of Any Multi-Drug Resistant Organisms: None Reported Past Surgical History: Orthopedic Surgery Additional Past Surgical History / Comment(s): eye surgery, surgey on achilles Past Anesthesia/Blood Transfusion Reactions: No Reported Reaction Past Psychological History: Anxiety, Bipolar, Depression, Schizophrenia Smoking Status: Current every day smoker Past Alcohol Use History: Daily Past Drug Use History: Marijuana - Past Family History Mother History Unknown: Yes General Exam Limitations: no limitations General appearance: alert, in no apparent distress Head exam: Present: atraumatic, normocephalic, normal inspection Eye exam: Present: normal appearance, PERRL, EOMI. Absent: scleral icterus, conjunctival injection, periorbital swelling ENT exam: Present: normal exam, mucous membranes moist Neck exam: Present: normal inspection. Absent: tenderness, meningismus, lymphadenopathy Respiratory exam: Present: normal lung sounds bilaterally. Absent: respiratory distress, wheezes, rales, rhonchi, stridor Cardiovascular Exam: Present: regular rate, normal rhythm, normal heart sounds. Absent: systolic murmur, diastolic murmur, rubs, gallop, clicks GI/Abdominal exam: Present: soft, normal bowel sounds. Absent: distended, tenderness, guarding, rebound, rigid Extremities exam: Present: full ROM, tenderness (Positive left medial calcaneal TTP and mild edema around times two 1.5 cm scabbed wounds on medial aspect of left foot. No obvious red streaking but left calf tenderness noted extending to left popliteal region), normal capillary refill, joint swelling, calf tenderness, other (LLE distal neurovascular and motor function intact. P osterior tibialis pulse +2). Absent: pedal edema Back exam: Present: normal inspection Neurological exam: Present: alert, oriented X3, CN II-XII intact Psychiatric exam: Present: normal affect, normal mood Skin exam: Present: warm, dry, intact, normal color. Absent: rash Course Vital Signs 07/30/24 07/30/24 14:46 16:25 Temperature 97.8 F 98.4 F Pulse Rate 85 67 Respiratory 18 18 Rate Blood Pressure 127/82 130/77 O2 Sat by Pulse 98 99 Oximetry Medical Decision Making - Medical Decision Making Was pt. sent in by a medical professional or institution (INOCENTE Brown, SHERIFF'S OFFICER, urgent c are, hospital, or long term...) When possible be specific @ -No Did you speak to anyone other than the patient for history (EMS, parent, family, police, friend...)? What history was obtained from this source @ -No Did you review nursing and triage notes (agree or disagree)? Why? @ -I reviewed and agree with nursing and triage notes Were old charts reviewed (outside hosp., previous admission, EMS record, old EKG, old radiological studies, urgent care reports/EKG's, long term records)? Report findings @ -No old charts were reviewed Differential Diagnosis (chest pain, altered mental status, abdominal pain women, abdominal pain men, vaginal bleeding, weakness, fever, dyspnea, syncope, headache, dizziness, GI bleed, back pain, seizure, CVA, palpatations, mental health, musculoskeletal)? @ -Differential Musculoskeletal Muscular strain, contusion, ligament sprain, fracture, arthritis, septic arthritis, bursitis, cellulitis, muscle spasm, nerve compression, DVT, arterial occlusion, herpes zoster, electrolyte abnormality, tumor.... This is not meant to be in all inclusive list EKG interpreted by me (3pts min.). @ -Not on X-rays interpreted by me (1pt min.). @ -Left ankle x-ray shows no acute fracture/dislocation with mild soft tissue swelling over medial malleolus. CT interpreted by me (1pt min.). @ -None done U/S interpreted by me (1pt. min.). @ -None done What testing was considered but not performed or refused? (CT, X-rays, U/S, labs)? Why? @ -None What meds were considered but not given or refused? Why? @ -None Did you discuss the management of the patient with other professionals (professionals i.e. INOCENTE Brown, SHERIFF'S OFFICER, lab, RT, psych nurse, forensic social worker, medium cycle salesperson, teacher, human resource officer, correctional case manager)? Give summary @ -No Was smoking cessation discussed for >3mins.? @ -No Was critical care preformed (if so, how long)? @ -No Were there social determinants of health that impacted care today? How? (Homelessness, low income, unemployed, alcoholism, drug addiction, transportation, low edu. Level, literacy, decrease access to med. care, long-term, rehab)? @ -No Was there de-escalation of care discussed even if they declined (Discuss DNR or withdrawal of care, Hospice)? DNR status @ -No What co-morbidities impacted this encounter? (DM, HTN, Smoking, COPD, CAD, Cancer, CVA, ARF, Chemo, Hep., AIDS, mental health diagnosis, sleep apnea, morbid obesity)? @ -None Was patient admitted / discharged? Hospital course, mention meds given and route, prescriptions, significant lab abnormalities, going to OR and other pertinent info. @ -Left ankle x-ray shows no acute fracture/dislocation with mild soft tissue swelling over medial malleolus. Patient provided p.o. Tylenol, Keflex, Bactrim DS and IM Toradol, Rocephin and tetanus. Bactrim DS, Keflex, mupirocin ointment and Motrin 800 sent to patient's pharmacy. Advised alternate Tylenol/Motrin every 4 hours for pain. Follow-up with PCP regarding any ongoing symptoms. Return to ER if experiencing worsening pain and/or fever. Discussed patient with Dr. Marlow. Undiagnosed new problem with uncertain prognosis? @ -No Drug Therapy requiring intensive monitoring for toxicity (Heparin, Nitro, Insulin, Cardizem)? @ -No Were any procedures done? @ -No Diagnosis/symptom? @ -Cellulitis, lymphangitis Acute, or Chronic, or Acute on Chronic? @ -Acute Uncomplicated (without systemic symptoms) or Complicated (systemic symptoms)? @ -Uncomplicated Side effects of treatment? @ -No Exacerbation, Progression, or Severe Exacerbation? @ -No Poses a threat to life or bodily function? How? (Chest pain, USA, CT, pneumonia, PE, COPD, DKA, ARF, appy, cholecystitis, CVA, Diverticulitis, Homicidal, Suicidal, threat to staff... and all critical care pts) @ -No Disposition Clinical Impression: Cellulitis of left foot, Acute lymphangitis of left lower extremity Disposition: HOME SELF-CARE Condition: Fair Instructions (If sedation given, give patient instructions): Cellulitis (ED), Lymphangitis (ED) Additional Instructions: Alternate Tylenol/Motrin every 4 hours for pain. Keep wounds clean with antibacterial soap and water and dressing change at least twice daily. Follow- up with primary care for any ongoing symptoms. Return to ER if experiencing worsening pain, fever. Prescriptions: Sulfamethox-Tmp 800-160Mg [Bactrim DS 800-160 mg] 1 tab PO Q12HR #14 tab Mupirocin 2% Oint [Bactroban 2% Oint] 1 applic TOPICAL TID #22 gm Cephalexin [Keflex] 500 mg PO Q6HR 1 Days #28 cap Ibuprofen [Motrin] 800 mg PO Q8HR PRN #30 tab PRN Reason: Pain Is patient prescribed a controlled substance at d/c from ED?: No Referrals: Andrea Murillo [Primary Care Provider] - 1-2 days Time of Disposition: 16:16
--- NOTE | 2024-07-30 15:40 | XR ---
EXAMINATION TYPE: XR ankle limited LT DATE OF EXAM: 07/30/2024 3:33 PM COMPARISON: None. CLINICAL INDICATION: Male, 39 years old with history of Medial ankle infection and worsening pain, pa in TECHNIQUE: 2 view(s) obtained. FINDINGS: No acute fracture or dislocation evident. Joint space appears preserved. There may be some mild soft tissue swelling over the medial malleolus. Follow-up MRI can be performed at soft tissue evaluation w ould be of benefit. Follow up exams can be performed 7-10 days from acute trauma for continued pain. IMPRESSION: 1. No acute osseous abnormality left ankle. 2. Mild soft tissue swelling over the medial malleolus may be present. [facility], , 07/30/2024 3:38 PM
[2024-07-30] MEDS: SULFAMETHOX-TMP 800-160MG 1 EACH TAB PO STA (16:23)
[2024-07-30 16:26] VITALS: BP 130/77; PULSE 67; TEMP 98.4
== END 2024-07-30 16:30 | disposition home or self-care (01) ==
LOC: EC 14:44
DX: L03.116 Cellulitis of left lower limb (principal); L03.91 Acute lymphangitis, unspecified; Z23 Encounter for immunization; F17.200 Nicotine dependence, unspecified, uncomplicated
CPT/HCPCS: 73600; 90715; 99283; 90471; 96372; J1885